=== PATIENT | female | born 1935 | race Caucasian/White ===

== ENCOUNTER → 2019-10-09 10:59 | Outpatient (BNVA) | payer MEDICARE, SELFPAY | PROVIDERS: Family Provider Physician Assistant; PCP Physician Assistant; Referring Provider Family Medicine; Visit Provider Podiatrist Foot & Ankle Surgery | DX: M25.571 Pain in right ankle and joints of right foot (principal) | CPT/HCPCS: 73600; 73630 ==

== ENCOUNTER 2020-08-11 18:09 | Emergency (ER) | payer MEDICARE, SELFPAY ==
[2020-08-11 19:07] VITALS: BP 180/96; PULSE 56; RESP 16; TEMP 36.5; O2SAT 97; BMI 26.5
--- NOTE | 2020-08-11 19:13 | ECG_ITS ---
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 Measurements Intervals [place] Rate: 58 P: MD: QRS: -25 QRSD: 109 T: 41 QT: 430 QTc: 425 Interpretive Statements ATRIAL FIBRILLATION WITH SLOW VENTRICULAR RESPONSE BORDERLINE LEFT AXIS DEVIATION [QRS AXIS < -20] VOLTAGE CRITERIA FOR LVH [MEETS CRITERIA IN ONE OF: R(aVL), S(V1), R(V5), R(V5/V6)+S(V1)] MODERATE ST DEPRESSION [0.05+ mV ST DEPRESSION] Compared to ECG 01/23/2019 10:05:33 Left ventricular hypertrophy now present ST (T wave) deviation now present Intraventricular conduction delay no longer present T-wave abnormality no longer present Electronically Signed On 08-12-2020 0:30:47 CDT by Racquel Morgan M.D. [id number]
--- NOTE | 2020-08-11 20:01 | XRR_ITS ---
PROCEDURE INFORMATION: Exam: XR Chest Exam date and time: 08/11/2020 8:01 PM Age: 84 years old Clinical indication: Shortness of breath; Additional info: Cp TECHNIQUE: Imaging protocol: XR of the chest. Views: 1 view. 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 No airspace opacity. Pulmonary vascularity is within normal limits. Pleural spaces: Unremarkable. No pleural effusion. No pneumothorax. Heart/Mediastinum: The heart is enlarged. Bones/joints: No acute abnormality. XR/XR chest 1V portable [id number] IMPRESSION: Unchanged exam. No active pulmonary disease.
[2020-08-11 20:03] VITALS: BP 188/60; PULSE 53; RESP 16; O2SAT 97
--- NOTE | 2020-08-11 20:07 | ED_ITS ---
HPI - Arrhythmia/Palpitations General: Chief Complaint: Arrhythmia/Palpitations Stated Complaint: Irregular Heartbeat Time Seen by Provider: 08/11/20 19:53 Source: patient Mode of arrival: ambulatory Limitations: no limitations History of Present Illness: HPI narrative: 84-year-old female states that she is like her heart was slightly fluttering and was concerned today as she was having some high blood pressures in the 150s and 160s. Patient was seen at clinic today by nurse practitioner who sent her here as she is in A. fib. She has a long history of A. fib and is on rate controlling medicines and Eliquis. She denies any chest pain currently. Denies any fevers. Denies any shortness of breath. Associated symptoms: Deny nausea or vomiting Review of Systems Const: Denies: fever(s), chills, body aches or change in appetite Eyes: Denies: blurry vision or eye discomfort ENMT: Denies: throat pain or dental pain Card: Reports: irregular heart rhythm; Denies: chest pain Resp: Denies: dyspnea GI: Denies: abdominal pain, nausea, vomiting or diarrhea : Denies: dysuria Musc: Denies: neck pain or back pain Skin/Breast: Denies: rash Neuro: Denies: headache(s) Psych: Denies: depression Guero/Lymph: Denies: easy bruising All/Imm: Denies: urticaria PFSH ED PFSH: Medical History (Updated 08/11/20 @ 20:48 by Henrique Adam MD) Anticoagulant long-term use Eliquis Atrial fibrillation GERD (gastroesophageal reflux disease) HTN (hypertension) Hyperlipidemia Surgical History S/P cataract extraction S/P hysterectomy Family History Father Cancer LEUKEMIA Mother Cancer BREAST Other CAD (coronary artery disease) Diabetes Social History Smoking and tobacco status: never smoked Alcohol intake: never Lives independently: Yes Marital status: / Current occupational status: retired Physical Exam Const: COMMON NORMALS: no acute distress, patient oriented x3 and healthy appearing HENMT: COMMON NORMALS: normocephalic and atraumatic HEAD & SCALP: normocephalic and atraumatic Eye: COMMON NORMALS: Equal, round and reactive pupils present and EOMs intact bilaterally PUPIL: Yes Equal, round and reactive pupils present Neck/C-Spine: COMMON NORMALS: full ROM and supple Chest: COMMONS NORMALS: normal inspection of the chest and normal palpation of entire chest wall Resp: COMMON NORMALS: normal respiratory effort, No retractions, No use of accessory muscles and clear to auscultation bilaterally AUSCULTATION: clear to auscultation bilaterally Cardio: COMMON NORMALS: No murmurs present (Cardio) RATE: bradycardic RHYTHM: abnormal rhythm irregularly irregular GI: COMMON NORMALS: Normal to inspection, nondistended, normoactive bowel sounds present, Soft to palpation, non-tender and no masses PALPATION: Yes Soft to palpation Extremity: COMMON NORMALS: normal to inspection and full ROM Neuro: COMMON NORMALS: patient oriented x3, moves all extremities and no focal motor deficits Psych: COMMON NORMALS: mental status grossly normal, Normal thought process present and cooperative THOUGHT PROCESS: Normal thought process present Skin: COMMON NORMALS: no rashes or lesions noted and no wounds GENERAL SKIN EXAM: no rashes or lesions noted Course Vital Signs: Vital signs: Vital Signs Temperature 97.7 F 08/11/20 19:07 Pulse Rate 53 L 08/11/20 20:03 Respiratory Rate 16 08/11/20 20:03 Blood Pressure 188/60 08/11/20 20:03 Pulse Oximetry 97 08/11/20 20:03 MDM - Arrhythmia/Palpitations MDM Narrative: Medical decision making narrative: Patient presents here with high blood pressure. She was seen in clinic today and sent here for her A. fib but she has a long history of A. fib and is rate controlled and on Eliquis. She feels much improved here and she is stable for discharge. She is to monitor her blood pressure at home. She is return if worsening. Lab Data: Labs: Lab Results 08/11/20 08/11/20 08/11/20 Range/Units 20:05 20:05 20:05 WBC 5.9 (4.0-10.0) 10^3/ uL RBC 3.66 L (4.1-5.3) 10^6/u L Hgb 11.9 (11.5-15.3) g/dL Hct 35.5 L (37.0-47.0) % MCV 97.0 (81-99) fL MCH 32.5 (28.0-34.0) pg MCHC 33.5 (30.0-36.0) g/dL RDW 12.2 (12.1-15.1) % Plt Count 126 L (130-400) 10^3/c mm MPV 10.9 H (7.4-10.4) fL Neut % (Auto) 59.9 % Lymph % (Auto) 25.8 % Ceiba % (Auto) 9.6 % Eos % (Auto) 3.4 % Baso % (Auto) 0.8 % Neut # (Auto) 3.56 (1.8-7.7) 10^3/u L Lymph # (Auto) 1.5 (0.8-4.8) 10^3/u L Ceiba # (Auto) 0.6 (0.2-0.9) 10^3/u L Eos # (Auto) 0.2 (0.0-0.8) 10^3/u L Baso # (Auto) 0.1 (0.0-0.1) 10^3/u L Nucleated RBC % (a uto) 0 % Nucleated RBCs # 0.0 /100WBC Sodium 136 (136-145) mmol/L Potassium 3.3 L (3.5-5.1) mmol/L Chloride 97 L (98-107) mmol/L Carbon Dioxide 29 (22-29) mmol/L Anion Gap 13.3 (5-19) BUN 16 (8-23) mg/dL Creatinine 0.7 (0.5-0.9) mg/dL GFR Calculation Not Reportable Glucose 137 H (65-115) mg/dL Calculated Osmolal ity 285 (285-295) mOsm/k g Calcium 9.2 (8.5-10.5) mg/dL Total Bilirubin 0.9 (0.15-1.2) mg/dL AST 21 (0-32) U/L ALT 12 (0-33) U/L Alkaline Phosphata se 54 (35-105) IU/L Troponin T Baselin e 18 H (0-10) ng/L Total Protein 6.3 L (6.6-8.7) g/dL Albumin 4.3 (3.5-5.2) g/dL Globulin 2.0 (1.3-4.6) g/dL EKG Data^: EKG 1: EKG interpretation date: 08/11/20 EKG interpretation time: 19:05 Interpretation: afib hr [address] or t wave abnormalities qrs 109 qtc 427 Discharge Plan Discharge Patient Disposition: Home Clinical Impression: Atrial fibrillation Qualifiers: Atrial fibrillation type: unspecified Qualified Code(s): I48.91 - Unspecified atrial fibrillation HTN (hypertension) Qualifiers: Hypertension type: essential hypertension Qualified Code(s): I10 - Essential (primary) hypertension Condition: Stable Prescriptions: No Action gabapentin 300 mg capsule 300 mg PO BID RF: 0 metoprolol tartrate 50 mg tablet 50 mg PO BID RF: 0 triamterene-hydrochlorothiazid 37.5-25 mg tablet 1 tab PO DAILY RF: 0 potassium 99 mg tablet 99 mg PO DAILY RF: 0 hydrocortisone [Cortisone (hydrocortisone)] 1 % cream 1 applic TOPICAL BID PRN (Reason: skin irritation) Qty: 454 RF: 1 Eliquis 5 mg tablet 5 mg PO BID Qty: 180 RF: 3 Discharge Orders: Discharge ED (Routine); Ordered 08/11/20 Ordered By: Henrique Adam Referrals: Dennis Wilson [Primary Care Provider] - 1-3 days Discharge Diet: Advance as tolerated Discharge Activity: Resume usual activity Patient Instructions: Hypertension (ED) Coding Level of Care Code ED Director Public Service for Chg Fwd Exam Comprehensive
[2020-08-11] MEDS: hyDRALAzine 20 mg/mL INJ 1 mL 10 MG IVP (20:09)
[2020-08-11 20:17] LABS: Basophils # 0.1 10^3/uL (0.0-0.1); Basophils % 0.8 %; Eosinophils # 0.2 10^3/uL (0.0-0.8); Eosinophils % 3.4 %; Hematocrit 35.5 % (37.0-47.0); Hemoglobin 11.9 g/dL (11.5-15.3); Lymphocytes # 1.5 10^3/uL (0.8-4.8); Lymphocytes % 25.8 %; Mean Corpuscular HGB Conc 33.5 g/dL (30.0-36.0); Mean Corpuscular Hemoglobin 32.5 pg (28.0-34.0); Mean Platelet Volume 10.9 fL (7.4-10.4); Monocytes # 0.6 10^3/uL (0.2-0.9); Monocytes % 9.6 %; Neutrophils # 3.56 10^3/uL (1.8-7.7); Neutrophils % 59.9 %; Nucleated Red Blood Cells % 0 %; Platelet Count 126 10^3/cmm (130-400); Red Blood Count 3.66 10^6/uL (4.1-5.3); Red Cell Distribution Width 12.2 % (12.1-15.1); White Blood Count 5.9 10^3/uL (4.0-10.0)
[2020-08-11 20:31] LABS: Troponin(5th) Baseline 18 ng/L (0-10)
[2020-08-11 20:32] LABS: Alanine Aminotransferase 12 U/L (0-33); Albumin Level 4.3 g/dL (3.5-5.2); Alkaline Phosphatase 54 IU/L (35-105); Aspartate Amino Transferase 21 U/L (0-32); Blood Urea Nitrogen 16 mg/dL (8-23); Calcium 9.2 mg/dL (8.5-10.5); Carbon Dioxide 29 mmol/L (22-29); Chloride 97 mmol/L (98-107); Glucose 137 mg/dL (65-115); Osmolality Calculated 285 mOsm/kg (285-295); Sodium 136 mmol/L (136-145); Total Bilirubin 0.9 mg/dL (0.15-1.2); Total Protein 6.3 g/dL (6.6-8.7)
[2020-08-11 20:33] LABS: Anion Gap 13.3 (5-19); Potassium 3.3 mmol/L (3.5-5.1)
[2020-08-11 21:25] VITALS: BP 153/63; PULSE 60; RESP 18; O2SAT 97
== END 2020-08-11 21:27 | disposition home or self-care (01) ==
PROVIDERS: Emergency Provider Emergency Medicine; PCP Physician Assistant
DX: I10 Essential (primary) hypertension (principal); I48.91 Unspecified atrial fibrillation; Z79.01 Long term (current) use of anticoagulants; E78.5 Hyperlipidemia, unspecified
CPT/HCPCS: 71045; 80053; 84484; 85025; 93005; 96374; 99284; J0360

== ENCOUNTER 2020-09-18 12:53 | Emergency (ER) | payer MEDICARE, SELFPAY ==
[2020-09-18 13:21] VITALS: BP 160/69; PULSE 79; RESP 18; TEMP 37.1; O2SAT 96; BMI 25.7
--- NOTE | 2020-09-18 13:53 | ED_ITS ---
HPI - COVID General: Chief Complaint: COVID symptoms Stated Complaint: HOME TEST/COVID +:FATIGUE,ACHES, JOINT PAIN Time Seen by Provider: 09/18/20 13:48 Source: patient Mode of arrival: ambulatory Limitations: no limitations Triage information: Has fever, cough or shortness of breath . Exposure to COVID + person last 14 days History of Present Illness: HPI Narrative: Reportedly took home Covid test which returned negative last night. Woke this morning with a fever of 100 ?F. Reports no cough shortness of breath aside from fever feels fine. MD complaint: reported COVID exposure and has COVID symptoms Prior covid testing: yes, results known (Negative rapid testing) Prior testing date: 09/17/20 COVID 19 common symptoms: positive fever(s), chills, fatigue, body aches and headache(s); negative cough, non-productive cough, productive cough, dyspnea, loss of sense of smell and/or taste, throat pain, nasal congestion, nausea, vomiting, diarrhea or chest tightness COVID 19 other sytmptoms: negative chest pressure, chest pain, pleuritic pain, requiring oxygen, requiring more oxygen, respiratory distress, cyanosis, lethar gy, confusion, new neurological complaints or other concerning symptoms Onset (ago): day(s) (1) Severity: mild Pertinent comorbid conditions: hypertension and heart disease Treatment prior to arrival: none COVID Results: No Data to Display Review of Systems General: Reports: 10 or more systems reviewed and unremarkable except in HPI and below Const: Reports: fever(s), chills, body aches and fatigue ENMT: Denies: throat pain or nasal congestion Card: Denies: chest pain Resp: Denies: dyspnea, productive cough or non-productive cough GI: Denies: nausea, vomiting or diarrhea Neuro: Reports: headache(s); Denies: confusion PFSH ED PFSH: Medical History (Updated 08/11/20 @ 20:48 by Henrique Adam MD) Anticoagulant long-term use Eliquis Atrial fibrillation GERD (gastroesophageal reflux disease) HTN (hypertension) Hyperlipidemia Surgical History S/P cataract extraction S/P hysterectomy Family History Father Cancer LEUKEMIA Mother Cancer BREAST Other CAD (coronary artery disease) Diabetes Social History Smoking and tobacco status: never smoked Alcohol intake: never Lives independently: Yes Marital status: / Current occupational status: retired Physical Exam Const: COMMON NORMALS: no acute distress GENERAL APPEARANCE: cooperative, comfortable and well kempt HENMT: COMMON NORMALS: normocephalic and atraumatic HEAD & SCALP: normal to inspection, normocephalic and atraumatic Eye: COMMON NORMALS: Equal, round and reactive pupils present GENERAL EYE: appearance normal, both eyes and all related structures PUPIL: Yes Equal, round and reactive pupils present Neck/C-Spine: COMMON NORMALS: full ROM, no lymphadenopathy and no JVD Lymph: LYMPHATIC: no lymphadenopathy noted Resp: COMMON NORMALS: normal respiratory effort, No retractions, No use of accessory muscles and clear to auscultation bilaterally EFFORT & INSPECTION: Yes able to speak in complete sentences, Yes symmetric chest movement, No tachypneic, No respiratory distress and No labored AUSCULTATION: clear to auscultation bilaterally Cardio: COMMON NORMALS: no JVD, regular rate, S1 normal heart sound present and S2 normal heart sound present RATE: regular rate HEART SOUNDS: S1 normal heart sound present and S2 normal heart sound present GI: COMMON NORMALS: Normal to inspection, nondistended, normoactive bowel so unds present Extremity: GENERAL: Yes normal exam except as noted Psych: APPEARANCE: Yes well kempt Skin: COMMON NORMALS: no rashes or lesions noted GENERAL SKIN EXAM: no rashes or lesions noted Course ED course: Presents to emergency room requesting Covid testing awoke this mor uriah febrile with a headache. Has since developed some body aches but no further progression of symptoms. Brought here for evaluation by son overall patient states she feels fine. Discussed monoclonal antibody infusion patient desires infusion. Vital Signs: Vital signs: Vital Signs Temperature 98.8 F 09/18/20 13:21 Pulse Rate 79 09/18/20 13:21 Respiratory Rate 18 09/18/20 13:21 Blood Pressure 160/69 09/18/20 13:21 Pulse Oximetry 96 09/18/20 13:21 MDM - COVID MDM Narrative: Medical decision making narrative: Due to the long wait patient desires to be discharged home and contacted with Covid results we will schedule for monoclonal antibody infusion pending results. COVID Results: No Data to Display Monoclonal Antibody - ED Inclusion/Exclusion Criteria age >/= 12 years, weight >/= 40kg /88lbs, symptom onset less than 10 days ago and + direct Sars-Cov-2 test less than 7-10 days ago obesity (BMI >25 or 85%til for age), immunosuppressive diease and age >/= 65 not requiring hospitalization, not requiring oxygen (if not chronically on ox ygen) and no increase oxygen requirement (if chronically on oxygen) Patient education patient/family/caregiver received/reviewed fact sheet, Emergency Use Authorization/unapproved drug status discussed with patient/family/caregiver, alternatives to this treatment discussed with patient/family/caregiver, risks and benefits of medication reviewed with patient/family/caregiver, patient/family/caregiver given opportunity for questions, which were answered and patient consents to receiving Monoclonal Antibody Treatment Plan for treatment Meets criteria for Monoclonal Antibody infusion and If had positive direct antigen test for COVID, would meet criteria for Monoclonal Antibody infusion Date of symptom(s) onset: 09/18/20 Ordering Monoclonal Antibody infusion for another day Discharge Plan Discharge Condition: Stable Prescriptions: No Action gabapentin 300 mg capsule 300 mg PO BID RF: 0 metoprolol tartrate 50 mg tablet 50 mg PO BID RF: 0 triamterene-hydrochlorothiazid 37.5-25 mg tablet 1 tab PO DAILY RF: 0 potassium 99 mg tablet 99 mg PO DAILY RF: 0 hydrocortisone [Cortisone (hydrocortisone)] 1 % cream 1 applic TOPICAL BID PRN (Reason: skin irritation) Qty: 454 RF: 1 Eliquis 5 mg tablet 5 mg PO BID Qty: 180 RF: 3 Discharge Orders: Discharge ED (Routine); Ordered 09/18/20 Ordered By: Didi York Referrals: Renee Ferguson NP [Primary Care Provider] - Coding Level of Care Code ED Technical Applications Specialist for Chg Fwd Exam Comprehensive
--- NOTE | 2020-09-18 15:33 | PC.NURSE ---
pt was seen and discharged by midlevel provider in waiting room. no nursing assessment done.
[2020-09-18 16:12] LABS: SARS Covid-2 Antigen Positive (Negative)
--- NOTE | 2020-09-18 17:18 | PC.NURSE ---
called pt and notified of positive covid results. pt will be contacted this weekend to set up MCA infusion
--- NOTE | 2020-09-21 08:30 | DCPLANNER ---
assistant manager quality management had message to schedule a monoclonal antibody infusion. assistant manager quality management called centralized scheduling to confirm that scheduling had order on patient. assistant manager quality management was told that scheduling had the order and will schedule the infusion and will call patient with the appointment information.
== END 2020-09-18 15:35 | disposition home or self-care (01) ==
PROVIDERS: Emergency Provider Nurse Practitioner Family; PCP Nurse Practitioner Family
DX: U07.1 COVID-19 (principal); Z79.01 Long term (current) use of anticoagulants; I10 Essential (primary) hypertension; E78.5 Hyperlipidemia, unspecified
CPT/HCPCS: 87426; 99282

== ENCOUNTER 2020-09-20 09:11 | Outpatient (CLI) | payer MEDICARE, SELFPAY ==
[2020-09-20 12:00] VITALS: BP 125/69; PULSE 69; RESP 18; TEMP 36.6; O2SAT 96; BMI 30.2
[2020-09-20 12:25] VITALS: BP 138/72; PULSE 58; RESP 17; TEMP 36.5; O2SAT 95
--- NOTE | 2020-09-20 13:10 | A.OFFVIS_ITS ---
Patient Information Symptom onset date: 09/17/20 COVID 19 common symptoms: positive fever(s), chills, fatigue and body aches; negative cough Severity: mild Treatment prior to arrival: none [facility] COVID test results: SARS-CoV-2 Antigen (Rapid) Positive (Negative) H 09/18/20 15:30 09/18/20 Criteria/Plan Inclusion/Exclusion Criteria age >/= 12 years, weight >/= 40kg /88lbs, symptom onset less than 10 days ago and + direct Sars-Cov-2 test less than 7-10 days ago age >/= 65 not requiring hospitalization, not requiring oxygen (if not chronically on oxygen) and no increase oxygen requirement (if chronically on oxygen) Patient education patient/caregiver received/reviewed fact sheet, Emergency Use Authoriz ation/unapproved drug status discussed with patient/caregiver, alternatives to this treatment discussed with patient/caregiver, risks and benefits of medication reviewed with patient/caregiver, patient/caregiver given opportunity for questions, which were answered and patient/caregiver consents to receiving Monoclonal Antibody Treatment Plan for treatment Meets criteria for Monoclonal Antibody infusion Ordering Monoclonal Antibody infusion for today
[2020-09-20 14:25] VITALS: BP 135/77; PULSE 55; RESP 18; TEMP 36.2; O2SAT 98
== END 2020-09-20 09:12 | disposition home or self-care (01) ==
PROVIDERS: PCP Nurse Practitioner Family; Visit Provider Hospitalist
DX: U07.1 COVID-19 (principal)
CPT/HCPCS: 96365

== ENCOUNTER 2020-12-08 14:57 | Observation (INO) | payer MEDICARE, SELFPAY ==
[2020-12-08] VITALS (9 sets, daily range): BP systolic 125–181; BP diastolic 53–86; PULSE 53–80; RESP 13–19; TEMP 36.6–36.9; O2SAT 96–100
--- NOTE | 2020-12-08 15:20 | XR_ITS ---
WS: [id number] Exam: XR chest 1V portable [id number] Date/Time of Exam: 12/08/2020 3:22 PM Reason For Exam: chest pain Comparison 08/11/2020. The lungs are clear and fully expanded. The heart is enlarged but unchanged in size. No pleural effus ions. The mediastinum is not widened. Marked degenerative change of the right and left shoulders. XR/XR chest 1V portable [id number] IMPRESSION: 1. Cardiac enlargement unchanged. 2. No acute cardiopulmonary process identified.
--- NOTE | 2020-12-08 15:21 | ECG_ITS ---
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 Measurements Intervals [place] Rate: 62 P: MO: QRS: -20 QRSD: 101 T: 47 QT: 417 QTc: 424 Interpretive Statements ATRIAL FIBRILLATION MODERATE VOLTAGE CRITERIA FOR LVH, CONSIDER NORMAL VARIANT [MEETS CRITERIA IN ONE OF: R(aVL), S(V1), R(V5), R(V5/V6)+S(V1)] MODERATE ST DEPRESSION [0.05+ mV ST DEPRESSION] Compared to ECG 08/11/2020 19:05:38 No significant changes Electronically Signed On 12-08-2020 23:24:04 CDT by Evaristo Turcios M.D. [id number]
--- NOTE | 2020-12-08 15:34 | ED_ITS ---
HPI - General Adult General: Chief complaint: Chest Pain Stated complaint: CHEST PAIN Time Seen by Provider: 12/08/20 15:05 History of Present Illness: HPI narrative: CC: Chest Pain HPI: This is a [85]yo patient hx of HTN, afib on eliquis presenting to the ED w/ acute onset intermittent squeenzing chest pain since 11am. Denies any dyspnea. Patient called EMS and was given ASA 325 and 2 tablets with nitro with relief of pain. Pain is not tearing in nature and does not radiate to the back. Endorse nausea but has no associated with vomiting or decreased PO intake. Denies any recent sympathomimetic drug use. Patient denies any cough. Denies palpitations, syncope symptoms. Pain not positional. Norecent immobility, surgery, unilateral leg swelling, or prior PE. Patient denies any orthopnea, paroxysmal nocturnal dyspnea, weight gain, or increased leg swellings. Onset: 4 hrs ago Duration: ongoing for the last 4 hrs Location: home Severity: moderate Review of Systems Narrative: Constitutional: No fever, no chills. HEENT: No vision changes, no sore throat. CV: +chest pain, no palpitations. PULM: No cough, no dyspnea. GI: No abdominal pain, no N/V/D. : No dysuria, no frequency, no hematuria. MSKEL: No arthralgias, no edema. SKIN: No new rashes, no lesions. NEURO: No headache, no focal weakness. HEME: No easy bleeding or bruising. PSYCH: No change in mood or affect. [facility] ED PFSH: Medical History (Updated 12/10/20 @ 00:01 by ) Anticoagulant long-term use Eliquis Atrial fibrillation COVID-19 GERD (gastroesophageal reflux disease) HTN (hypertension) Hyperlipidemia Surgical History S/P cataract extraction S/P hysterectomy Family History Father Cancer LEUKEMIA Mother Cancer BREAST Other CAD (coronary artery disease) Diabetes Social History Smoking and tobacco status: never smoked Alcohol intake: never Lives independently: Yes Marital status: / Current occupational status: retired Physical Exam Narrative: EXAM NARRATIVE: Head: Atraumatic, normocephalic Eyes: PERRL, EOMI, conjunctiva without injection ENT: Throat without erythema, lesions or exudate, MMM NECK: Supple, trachea midline, no JVD LUNGS: LCTA CV: Irregularly irregular, no murmurs, rubs, gallops. 2+ peripheral pulses in UEs ABDOMEN: Soft, nontender, nondistended, BS x4, no rigidity, no guarding, no rebound EXTREMITY: Normal ROM, no pitting edema, no calf tenderness to palpation SKIN: No rash or erythema NEURO: Awake and alert. No focal motor deficits. PSYCH: Normal mood and affect. Course Vital Signs: Vital signs: Vital Signs Temperature 98 F 12/09/20 03:38 Pulse Rate 56 L 12/09/20 16:46 Respiratory Rate 20 H 12/09/20 16:46 Blood Pressure 139/69 12/09/20 16:46 Pulse Oximetry 95 12/09/20 16:46 MDM - General Adult MDM Narrative: Medical decision making narrative: [85]yo patient w/ hx of afib on eliquis, HTN, HLD presenting to the ED With acute substernal chest pain X 4 hrs. Currently mild chest pain, no prior workup. Given History And Exam today I have moderate to high suspicion for ACS/UA/NSTEMI. Today, I have NO suspicion for pneumothorax, pneumonia, pulmonary embolus, tamponade, aortic dissection or other emergent problem as a cause for this presentation. ECG did not show any signs of acute STEMI. Workup: ECG, CXR, CBC, BMP, Troponin Intervention: Nitro SL EKG showing Afib at HR=62. Normal axis. No ST elevations/depressions to suggest coronary occlusion. Normal QRS, QT intervals. Poor R wave progression Findings: ECG: No overt evidence of STEMI, no hyperacute T waves, localizable STD or T wave inversions. No evidence of Brugada?s sign, delta wave, epsilon wave, significantly prolonged QTc, or malignant arrhythmia. No Q waves. Troponin: 21 (baseline 18) Other Labs unremarkable for emergent problems. CXR: Without PTX, PNA, or widened mediastinum [4:41pm] On reassessment, the patient is currently chest pain free. Will admit for chest pain workup. Disposition: Inpatient admission. Lab Data: Labs: Lab Results 12/08/20 12/08/20 12/08/20 15:45 15:45 15:45 WBC 5.3 10^3/uL 10^3/ uL (4.0-10.0) RBC 3.28 10^6/uL L 10 ^6/uL (4.1-5.3) Hgb 10.8 g/dL L g/dL (11.5-15.3) Hct 31.2 % L % (37.0-47.0) MCV 95.1 fl fl (81-99) MCH 32.9 pg pg (28.0-34.0) MCHC 34.6 g/dL g/dL (30.0-36.0) RDW 12.3 % % (12.1-15.1) Plt Count 111 10^3/cmm L 10 ^3/cmm (130-400) MPV 11.0 fL H fL (7.4-10.4) Neut % (Auto) 69.4 % % Lymph % (Auto) 19.7 % % Porter % (Auto) 8.0 % % Eos % (Auto) 1.9 % % Baso % (Auto) 0.6 % % Neut # (Auto) 3.66 10^3/uL 10^3 /uL (1.8-7.7) Lymph # (Auto) 1.0 10^3/uL 10^3/ uL (0.8-4.8) Porter # (Auto) 0.4 10^3/uL 10^3/ uL (0.2-0.9) Eos # (Auto) 0.1 10^3/uL 10^3/ uL (0.0-0.8) Baso # (Auto) 0.0 10^3/uL 10^3/ uL (0.0-0.1) Nucleated RBC % (a uto) 0 % % Nucleated RBCs # 0.0 /100WBC /100W BC D-Dimer Sodium 137 mmol/L mmol/L (136-145) Potassium 3.4 mmol/L L mmol /L (3.5-5.1) Chloride 98 mmol/L mmol/L (98-107) Carbon Dioxide 30 mmol/L H mmol/ L (22-29) Anion Gap 12.4 (5-19) BUN 15 mg/dL mg/dL (8-23) Creatinine 0.8 mg/dL mg/dL (0.5-0.9) GFR Calculation Not Reportable Glucose 110 mg/dL mg/dL (65-115) Calculated Osmolal ity 285 mOsm/kg mOsm/ kg (285-295) Calcium 9.4 mg/dL mg/dL (8.5-10.5) Iron TIBC % Saturation Unsat Iron Binding Troponin T Baselin e 21 ng/L H ng/L (0-10) NT-Pro-B Natriuret Pep Procalcitonin TSH 12/08/20 12/08/20 12/08/20 15:45 15:45 15:45 WBC RBC Hgb Hct MCV MCH MCHC RDW Plt Count MPV Neut % (Auto) Lymph % (Auto) Porter % (Auto) Eos % (Auto) Baso % (Auto) Neut # (Auto) Lymph # (Auto) Porter # (Auto) Eos # (Auto) Baso # (Auto) Nucleated RBC % (a uto) Nucleated RBCs # D-Dimer 0.79 ug/mIFEU H u g/mIFEU (0-0.59) Sodium Potassium Chloride Carbon Dioxide Anion Gap BUN Creatinine GFR Calculation Glucose Calculated Osmolal ity Calcium Iron 92 ug/dL ug/dL (37-145) TIBC 257 mcg/dl mcg/dl % Saturation 35.7 % % (20-50) Unsat Iron Binding 165 ug/dL ug/dL (112-347) Troponin T Baselin e NT-Pro-B Natriuret Pep 1770 pg/mL H pg/m L (0-450) Procalcitonin 0.05 ng/mL ng/mL (0-0.5) TSH 1.72 uIU/mL uIU/m L (0.27-4.20) Imaging Data^: Other Imaging: Radiologist's impression: [address] [id number] ReportSigned Patient: Adele Garland #: [id number]: 8Acct#:[id number]/Sex: 85 / FADM Date: 12/08/20Loc: ERRoom/Bed:Attending Dr: Ordering Provider/Ordering MD: Daxa Connors MD Date of Service: 12/08/20 Procedure(s): XR chest 1V portable [id number] Accession Number(s): [id number] Report Number: [id number] WS: [id number] Exam: XR chest 1V portable [id number] Date/Time of Exam: 12/08/2020 3:22 PM Reason For Exam: chest pain Comparison 08/11/2020. The lungs are clear and fully expanded. The heart is enlarged but unchanged in size. No pleural effusions. The mediastinum is not widened. Marked degenerative change of the right and left shoulders. XR/XR chest 1V portable [id number] IMPRESSION: 1. Cardiac enlargement unchanged. 2. No acute cardiopulmonary process identified. Dictated By:Johana Butler By:Johana Butler Date/Time:12/08/20 1532DD/ 1530 Discharge Plan Discharge Patient Disposition: Admitted As Inpatient Admit Provider: Ino Carballo Clinical Impression: Chest pain Condition: Stable Discharge Diet: Cardiac Discharge Activity: Resume usual activity Coding Level of Care Code ED Paper Stacker for Zeeg Olivia
--- NOTE | 2020-12-08 16:00 | PC.PHAR ---
pt states she takes care of her own medications-pt brought in most of her medication bottles
[2020-12-08 16:05] LABS: Basophils % 0.6 %; Eosinophils # 0.1 10^3/uL (0.0-0.8); Eosinophils % 1.9 %; Hematocrit 31.2 % (37.0-47.0); Hemoglobin 10.8 g/dL (11.5-15.3); Lymphocytes % 19.7 %; Mean Corpuscular HGB Conc 34.6 g/dL (30.0-36.0); Mean Corpuscular Hemoglobin 32.9 pg (28.0-34.0); Mean Corpuscular Volume 95.1 fl (81-99); Monocytes # 0.4 10^3/uL (0.2-0.9); Neutrophils # 3.66 10^3/uL (1.8-7.7); Neutrophils % 69.4 %; Nucleated Red Blood Cells % 0 %; Platelet Count 111 10^3/cmm (130-400); Red Blood Count 3.28 10^6/uL (4.1-5.3); Red Cell Distribution Width 12.3 % (12.1-15.1); White Blood Count 5.3 10^3/uL (4.0-10.0)
[2020-12-08 16:29] LABS: Troponin(5th) Baseline 21 ng/L (0-10)
[2020-12-08 16:31] LABS: Anion Gap 12.4 (5-19); Blood Urea Nitrogen 15 mg/dL (8-23); Calcium 9.4 mg/dL (8.5-10.5); Carbon Dioxide 30 mmol/L (22-29); Chloride 98 mmol/L (98-107); Glucose 110 mg/dL (65-115); Osmolality Calculated 285 mOsm/kg (285-295); Potassium 3.4 mmol/L (3.5-5.1); Sodium 137 mmol/L (136-145)
[2020-12-08 16:56] LABS: Slide Review Slide Review Perform
[2020-12-08] MEDS: nitroglycerin 0.4 mg sublingual Tablet SUBLINGUAL (16:57)
--- NOTE | 2020-12-08 17:21 | ECG_ITS ---
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 Measurements Intervals [place] Rate: 65 P: [place]: QRS: -22 QRSD: 97 T: 25 QT: 425 QTc: 444 Interpretive Statements ATRIAL FIBRILLATION BORDERLINE LEFT AXIS DEVIATION [QRS AXIS < -20] MODERATE VOLTAGE CRITERIA FOR LVH, CONSIDER NORMAL VARIANT [MEETS CRITERIA IN ONE OF: R(aVL), S(V1), R(V5), R(V5/V6)+S(V1)] ABNORMAL RHYTHM ECG Compared to ECG 12/08/2020 15:37:24 ST (T wave) deviation no longer present Electronically Signed On 12-08-2020 23:29:35 CDT by Evaristo Turcios M.D. [id number]
--- NOTE | 2020-12-08 17:28 | CTR_ITS ---
PROCEDURE INFORMATION: Exam: CTA Chest With Contrast Exam date and time: 12/08/2020 5:28 PM Age: 85 years old Clinical indication: Sternal or substernal pain; Additional info: Chest pain, recent covid, possible pe TECHNIQUE: Imaging protocol: Computed tomographic angiography of the chest with contrast. 3D rendering (Not supervised by radiologist): MIP and/or 3D reconstructed images were created by the technologist. Radiation optimization: All CT scans at this facility use at least one of these dose optimization techniques: automated exposure control; mA and/or kV adjustment per patient size (includes targeted exams where dose is matched to clinical indication); or iterative reconstruction. Contrast material: OMNI 350; Contrast volume: 77 ml; Contrast route: INTRAVENOUS (IV); COMPARISON: CR XR chest 1V portable [id number] 12/08/2020 3:26 PM RADIATION DOSE METRICS: Total DLP (mGy-cm): 525.49 FINDINGS: Pulmonary arteries: There is no evidence of filling defects within the pulmonary arterial circulation to suggest pulmonary embolism. Aorta: Unremarkable. No aortic aneurysm. No aortic dissection. Lungs: There is minimal dependent atelectasis at the lung bases. There are 2 noncalcified nodules in the anterior right upper lobe on image number 28 of series 3 measuring 1.9 and 3.6 mm. For patients at low risk (minimal or absent history of smoking and of other known risk factors), no routine follow-up is indicated. For patients at high risk (history of smoking or of other known risk factors), consider optional CT Chest at 12 months. (Reference: AlvinoWa) there is calcified granuloma left lower lobe. Pleural spaces: There is tiny right pleural effusion. Heart: The heart is moderately enlarged. There is moderate atherosclerotic calcification of the coronary arteries. There is a tiny bit of fluid in the superior pericardial recess. Lymph nodes: There is no evidence of lymphadenopathy. There are calcified hilar lymph nodes in keeping with old granulomatous disease. Liver: 13 mm hypodensity right lobe of the liver likely benign simple cyst. Gallbladder and bile ducts: Multiple calcified gallstones are present. Spleen: The spleen demonstrates punctate calcifications, consistent with remote granulomatous organism exposure. Adrenal glands: There is mild hyperplasia of the adrenal glands. Bones/joints: There are degenerative changes in both shoulders. There is mild scoliosis concave to the left. Soft tissues: Unremarkable. CT/CT angio chest PE protcl [id number] IMPRESSION: No evidence of pulmonary embolism. REFERENCES: Abril Macias, et al. Guidelines for Management of Incidental Pulmonary Nodules Detected on CT Images: From the Fleischner Society 2017. Radiology. 2017;284(1):228-243. Radiation Dose CTDIVOL = (mGy): DLP = 525.49 (mGy-cm)
--- NOTE | 2020-12-08 17:44 | P.HP_ITS ---
Providers/Chief Complaint Primary Care Provider: Renee Ferguson NP Chief Complaint: CHEST PAIN History of Present Illness Adele Garland is a 85 year old female with past medical history of atrial fibrillation on anticoagulation with Eliquis, hypertension, hyperlipidemia presented to the ER today after developing chest pain at rest today morning for which she required 1 nitro patch in the ER and after that pain resolved. Patient states usually she does not have chest pain on exertion. Pain was stabbing in nature not nonradiating not reproducible. Denies any nausea vomiting, headache. Patient also has recent history of COVID-19 2 months ago for which she required monoclonal antibodies. She is a non-smoker with family history of CAD in sister and mother both after the age of 60 years. Any recent change in medications, acid reflux, difficulty in breathing, cough. Blood work in the ER showed a white of 5.3, hemoglobin of 10.8, sodium of 137, potassium of 3.4, creatinine of 0.8, with chest x-ray as below, baseline tropon in of 21 without any delta being checked. Review of Systems General: Reports: 10 or more systems reviewed and unremarkable except in HPI and below Const: Denies: fever(s), chills, body aches, change in appetite, change in weight, malaise, night sweats, diaphoresis, change in sleep pattern, daytime sleepiness or snoring Eyes: Denies: change in vision, blurry vision, photophobia, eye discomfort or eye discharge ENMT: Denies: throat pain, enlarged tonsils, hoarseness, mouth pain, oral sores, dry mouth, tinnitus, nasal congestion or post nasal drip Card: Denies: chest pain, palpitations, irregular heart rhythm, edema, swelling of feet/ankles, lightheadedness, syncope, pre-syncope, dyspnea on exertion, orthopnea, leg pain with exertion or acrocyanosis Resp: Denies: dyspnea, productive cough, non-productive cough, wheezing, stridor, pain on inspiration, change in phlegm color, hemoptysis or chest congestion GI: Denies: abdominal pain, nausea, vomiting, hematemesis, coffee ground emesis, dysphagia, heartburn, diarrhea, constipation, bloating, GI cramping, c hange in bowel habits, pain on defecation, hematochezia or melena : Denies: flank pain, dysuria, urinary frequency, urinary urgency, urinary hesitancy, nocturia or hematuria Musc: Denies: neck pain, back pain, extremity pain, joint pain, joint swelling, joint redness, joint stiffness or limited range of motion Neuro: Denies: headache(s), numbness in extremities, weakness in extremities, sensory changes, lack of coordination, difficulty walking, frequent falls, dizziness, vertigo, confusion, Slurred speech present, difficulty communicating thoughts or seizure-like activity Psych: Denies: anxiety, depression, mood swings, panic attacks, hopelessness or irritability Endo: Denies: polyuria, polydipsia, tired all the time, cold intolerance, excessive sweating, flushing or heat intolerance Guero/Lymph: Denies: easy bruising or easy bleeding All/Imm: Denies: tongue swelling, facial swelling or acute wheezing Medications/Allergies Home Medications Medication Instructions Recorded Confirmed Last Taken Type gabapentin 300 mg capsule 300 mg PO TID 06/24/19 12/08/20 12/08/20 08:30 History metoprolol tartrate 50 mg tablet 50 mg PO BID 06/24/19 12/08/20 12/08/20 08:30 History apixaban 5 mg tablet 5 mg PO BID #180 tab 01/22/20 12/08/20 12/08/20 08:30 Rx acetaminophen [Tylenol Ex Str 1,000 mg PO Q4H PRN 12/08/20 12/08/20 Unknown Hist ory Rapid Release] ibuprofen 400 mg PO DAILY 12/08/20 12/08/20 Unknown History multivitamin 1 tab PO DAILY 12/08/20 12/08/20 Unknown History omeprazole [Prilosec] 20 mg PO QAM 12/08/20 12/08/20 Unknown History potassium gluconate 595 mg PO QAM 12/08/20 12/08/20 12/07/20 History pravastatin 10 mg PO QAM 12/08/20 12/08/20 12/08/20 08:30 History triamterene-hydrochlorothiazid 1 tab PO QAM 12/08/20 12/08/20 12/08/20 08:30 History Allergies Allergy/AdvReac Type Severity Reaction Status Date / Time codeine Allergy Unknown Unknown Verified 12/08/20 15:59 morphine Allergy Unknown Unknown Verified 12/08/20 15:59 nifedipine [From Procardia] Allergy Unknown Unknown Verified 12/08/20 15:59 Penicillins Allergy Unknown Unknown Verified 12/08/20 15:59 cortisone Allergy Unknown Verified 12/08/20 15:59 PFSH Acute PFSH: Medical History (Updated 12/08/20 @ 17:52 by Ino Carballo MD) Anticoagulant long-term use Eliquis Atrial fibrillation COVID-19 GERD (gastroesophageal reflux disease) HTN (hypertension) Hyperlipidemia Surgical History S/P cataract extraction S/P hysterectomy Family History Father Cancer LEUKEMIA Mother Cancer BREAST Other CAD (coronary artery disease) Diabetes Social History Smoking and tobacco status: never smoked Alcohol intake: never Lives independently: Yes Marital status: / Current occupational status: retired Vitals/I&O/Wt Last Vital Signs Temp 98.5 F 12/08/20 15:50 Pulse 63 12/08/20 16:55 Resp 19 H 12/08/20 16:55 BP 149/86 12/08/20 16:55 Pulse Ox 97 12/08/20 16:55 Physical Exam Narrative: EXAM NARRATIVE: General: No acute distress, AO x3 HEENT: PERRLA, pupils bilaterally equal and reactive Chest: Normal vesicular breath sounds, no added sounds, equal good air entry bilaterally CVS: S1-S2 irregularly irregular no murmurs, no tachycardia, no gallops, no rubs Abdomen: Soft, nontender, no organomegaly, bowel sounds present Neuro: No focal deficits, no facial deformity, AO x3, power 5/5 in all limbs Data : 12/08/20 15:45 12/08/20 15:45 A&P Assessment and plan (1) Chest pain: Atypical chest pain. Most likely musculoskeletal but given history cannot rule out unstable angina or PE Given history of recent Covid cannot rule out PE. Check D-dimer, CTA to rule out PE. Aspirin 325 mg given in the ER, 81 mg daily, continue with home dose of statin. Check HbA1c, lipid panel, echocardiogram. Nitro sublingual for pain, morphine as needed. Oxygen supplementation to keep saturation over 90%. N.p.o. after midnight for Lexiscan tomorrow morning. Protonix daily, Zofran as needed, Maalox every 6 hours as needed Status: Acute (2) Atrial fibrillation: Rate controlled. Continue with home dose of metoprolol and Eliquis. Status: Acute Qualifiers: Atrial fibrillation type: unspecified Qualified Code(s): I48.91 - Unspecified atrial fibrillation (3) Hyperlipidemia: Status: Acute (4) HTN (hypertension): Goal blood pressure less than 140/90 mmHg. Continue with home dose of metoprolol, triamterene hydrochlorothiazide. Blood pressure mildly elevated in the ER. We will continue to monitor. If needed will uptitrate medications. Status: Acute Qualifiers: Hypertension type: essential hypertension Qualified Code(s): I10 - Essential (primary) hypertension (5) COVID-19: Positive in September 2020. Post monoclonal antibody infusion. On room air. Status: Resolved Additional A&P Information Full code. Cardiac diet, n.p.o. after midnight. Protonix for PUD prophylaxis. Eliquis will help with DVT prophylaxis. Attestations Medical Necessity Statement*: Less than 2 midnights for atypical chest pain to rule out CAD in setting of recent Covid and atrial fibrillation Time Spent in Patient Care: Greater than 35 minutes (>than 50% of time spent in counselling and/or direct pt care on unit) . 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
[2020-12-08] MEDS: iohexol 350 mg/mL 100 mL Btl IV (17:47)
[2020-12-08 17:49] LABS: D Dimer 0.79 ug/mIFEU (0-0.59)
[2020-12-08] MEDS: pantoprazole DR 40 mg Tablet PO (18:03)
[2020-12-08 18:05] LABS: Thyroid Stimulating Hormone 1.72 uIU/mL (0.27-4.20)
[2020-12-08 18:06] LABS: Iron 92 ug/dL (37-145); NT Pro B Type Natriuretic Pept 1770 pg/mL (0-450); Percent Saturation 35.7 % (20-50); Total Iron Binding Capacity 257 mcg/dl; Unsaturated Iron Binding 165 ug/dL (112-347)
[2020-12-08 18:31] LABS: Troponin 5 2HR 18.98 ng/L (0-10)
[2020-12-08 18:36] LABS: Troponin 5 2HR Delta -2.02 ABS# (0-10)
[2020-12-08 18:46] LABS: Procalcitonin 0.05 ng/mL (0-0.5)
--- NOTE | 2020-12-08 21:21 | ECG_ITS ---
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 Measurements Intervals [place] Rate: 56 P: [place]: QRS: -5 QRSD: 101 T: 5 QT: 427 QTc: 414 Interpretive Statements ATRIAL FIBRILLATION WITH SLOW VENTRICULAR RESPONSE SEPTAL MYOCARDIAL INFARCTION , PROBABLY OLD [40+ ms Q WAVE IN V1/V2] Compared to ECG 12/08/2020 17:02:40 Myocardial infarct finding now present Electronically Signed On 12-08-2020 23:28:12 CDT by Evaristo Turcios M.D. [id number]
[2020-12-08] MEDS: gabapentin 300 mg Capsule PO (22:19)
[2020-12-08] MEDS: ferrous gluconate 324 mg Tablet PO (22:19)
[2020-12-08] MEDS: apixaban 5 mg Tablet PO (22:19)
[2020-12-08] MEDS: atorvastatin 40 mg Tablet 20 MG PO (22:19)
[2020-12-08] MEDS: metoprolol tartrate 50 mg Tablet PO (22:19)
[2020-12-08 22:35] LABS: Troponin 5 6HR 20.92 ng/L (0-10)
[2020-12-08 22:43] LABS: Troponin 5 6HR Delta -0.08 ng/L (0-12)
[2020-12-08] MEDS: alum-mag-hydroxide-sime 30 mL UDC 15 ML PO (22:58)
--- NOTE | 2020-12-08 23:16 | PC.NURSE ---
Patient c/o chest heaviness 1/10 upon arrival to floor. Around 2300, patient stated it was getting worse and rated it at a 3/10. Patient stated that nitro relieved her pain in the ED. Patient given PRN Maalox. Patient states that her pain is now gone.
--- NOTE | 2020-12-09 00:31 | ECG_ITS ---
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 Measurements Intervals [place] Rate: 47 P: [place]: QRS: -9 QRSD: 99 T: 0 QT: 450 QTc: 400 Interpretive Statements ATRIAL FIBRILLATION WITH SLOW VENTRICULAR RESPONSE INCOMPLETE RIGHT BUNDLE BRANCH BLOCK [90+ ms QRS DURATION, TERMINAL R IN V1/V2, 40+ ms S IN I/aVL/V4/V5/V6] SEPTAL MYOCARDIAL INFARCTION , PROBABLY OLD [40+ ms Q WAVE IN V1/V2] Compared to ECG 12/08/2020 22:16:40 Incomplete right bundle-branch block now present Myocardial infarct finding still present Electronically Signed On 12-10-2020 1:26:54 CDT by Racquel Morgan M.D. [email or web address] [email or web address].[employer]/[id number]
--- NOTE | 2020-12-09 01:36 | PC.NURSE ---
Dr. Jenkins notified of heart rate maintaining 40s-50s and hitting the 30s at times. Patient is asymptomatic. Blood pressure stable. Ordered to put Metoprolol on hold. Also notified of recent EKG results. Patient is currently not having any pain.
[2020-12-09 03:38] VITALS: BP 139/67; PULSE 68; RESP 16; TEMP 36.6; O2SAT 96
[2020-12-09 03:48] VITALS: PULSE 50
[2020-12-09] MEDS: acetaminophen 325 mg Tablet 650 MG PO (04:53)
[2020-12-09 05:34] LABS: Basophils % 0.4 %; Eosinophils # 0.2 10^3/uL (0.0-0.8); Eosinophils % 3.5 %; Hemoglobin 10.3 g/dL (11.5-15.3); Lymphocytes # 1.4 10^3/uL (0.8-4.8); Mean Corpuscular HGB Conc 33.2 g/dL (30.0-36.0); Mean Corpuscular Hemoglobin 32.5 pg (28.0-34.0); Mean Corpuscular Volume 97.8 fl (81-99); Mean Platelet Volume 11.4 fL (7.4-10.4); Monocytes # 0.5 10^3/uL (0.2-0.9); Monocytes % 10.4 %; Neutrophils # 2.72 10^3/uL (1.8-7.7); Neutrophils % 56.3 %; Nucleated Red Blood Cells % 0 %; Platelet Count 99 10^3/cmm (130-400); Red Blood Count 3.17 10^6/uL (4.1-5.3); Red Cell Distribution Width 12.3 % (12.1-15.1); White Blood Count 4.8 10^3/uL (4.0-10.0)
[2020-12-09 06:05] LABS: Alanine Aminotransferase 9 U/L (0-33); Albumin Level 3.4 g/dL (3.5-5.2); Alkaline Phosphatase 43 IU/L (35-105); Anion Gap 9.2 (5-19); Aspartate Amino Transferase 17 U/L (0-32); Blood Urea Nitrogen 17 mg/dL (8-23); Calcium 9.6 mg/dL (8.5-10.5); Carbon Dioxide 32 mmol/L (22-29); Chloride 99 mmol/L (98-107); Globulin 1.9 g/dL (1.3-4.6); Glucose 93 mg/dL (65-115); Magnesium 1.5 mg/dL (1.7-2.3); Osmolality Calculated 285 mOsm/kg (285-295); Phosphorus 3.1 mg/dL (2.5-4.5); Potassium 3.2 mmol/L (3.5-5.1); Sodium 137 mmol/L (136-145); Total Bilirubin 0.7 mg/dL (0.15-1.2); Total Protein 5.3 g/dL (6.6-8.7)
[2020-12-09 06:06] LABS: Chol HDL Ratio 2.66 mg/dL (0.0-4.40); Cholesterol 154 mg/dL (0-200); HDL Cholesterol 58 mg/dL (60-100); LDL Cholesterol Calculated 75 mg/dL (50-129); Triglycerides 106 mg/dL (0-150); VLDL Cholestrol Calculation 21 mg/dL (0-30)
[2020-12-09 06:21] LABS: Estmated Average Glucose 94; Hemoglobin A1C 4.9 % (4.0-6.0)
[2020-12-09] MEDS: regadenoson 0.4 Mg/5 ml Syringe IVP (08:00)
[2020-12-09] MEDS: ondansetron 2 mg/ML SDV 2 mL 4 MG IVP (08:11)
[2020-12-09 08:17] VITALS: BP 109/61; PULSE 67
[2020-12-09] MEDS: magnesium lactate 84 mg Tablet PO (09:25)
[2020-12-09] MEDS: gabapentin 300 mg Capsule PO (09:25)
[2020-12-09] MEDS: potassium chloride ER 20 mEq Tablet 40 MEQ PO (09:25)
[2020-12-09] MEDS: aspirin 81 mg EC Tablet PO (09:25)
[2020-12-09] MEDS: pantoprazole DR 40 mg Tablet PO (09:25)
[2020-12-09] MEDS: ferrous gluconate 324 mg Tablet PO (09:25)
[2020-12-09] MEDS: apixaban 5 mg Tablet PO (09:27)
--- NOTE | 2020-12-09 09:54 | PC.CHAP ---
Pastoral Care Encounter/Spiritual Assessment Type of Contact [] Declined application development team lead visit [] Patient/Family/Request visit [] Outpatient visit [] Follow-up visit [] Physician referral [] Code/Alert [x] Routine visit [] Staff referral [] Actively dying [] Patient sleeping [] Family support [] [] Out of room [] Palliative care [] [x] Receiving care in room [] Pre-surgical visit [] Trauma [] Long length of stay [] ICU visit [] Other: Relational/Emotional Strength [] Patient feels connected with others/family/visitors/staff [] Distress [] Loneliness/isolation [] Abandonment Spirituality of Patient [] Person of Lianne [] Attends Synagogue of their Lianne [] Believes in Prayer [] Reads Bible or Holiness materials [] There are Spiritual issues to be addressed Mechanical Insulator Interventions [x] Prayer [] Active listening [] Non-anxious presence [] Spiritual/emotional support [] Crisis/trauma care [] Spiritual counseling [] Bereavement support [] Provided bereavement packet [] Provided Bible/devotional materials [] Provided toy/stuffed animal, coloring book to patient or family member [] Provided Communion [] Anointing/Forest [] Salvation [x] Completed spiritual assessment [] Other: Impact on Illness or Injury [] Angry [] Fearful [] Anxious [] Often cries [] Exhaustion [] Unable to work [] Unable to attend scientology [] Unable to walk/stand [] Unable to read [] Unable to drive [] Unable to eat/drink [] Unable to sleep [] Unable to be with family [] Patient intubated [] Other: Summary Time spent with patient
[2020-12-09 11:39] VITALS: BP 152/71; PULSE 56; RESP 13; O2SAT 92
--- NOTE | 2020-12-09 13:01 | PC.NURSE ---
Notified Dr gold of patients HR instructions to hold am does of metoprolol
--- NOTE | 2020-12-09 14:32 | ECG_ITS ---
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 The perfusion scan will be documented separately. DATA: Baseline heart rate was 54 beats per minute. Baseline blood pressure was 166/84 millimeters of mercury. Target heart rate was 137. Maximum heart rate achieved was 78. which was 56 % of the predicted target heart rate. Maximum blood pressure was 166/84 millimeters of mercury. The reason for ending the test was completion of the protocol. The patient did not experience any symptoms. ELECTROCARDIOGRAM: BASELINE: Atrial fibrillation. Normal axis. Interventricular conduction delay otherwise, no ST-T changes suggestive of ischemia noted. No arrhythmia noted. EXERCISE: After Lexiscan injection, no ST-T changes suggestive of ischemic noted. No arrhythmia noted. CONCLUSION: Please note due to baseline abnormality of the EKG specificity and sensitivity of the EKG portion of LexiScan MIBI stress test will be low 1. EKG not suggestive of ischemia 2. Lexiscan injection unremarkable. 3. Perfusion scan will be documented separately. Electronically Signed On 12-10-2020 21:16:50 CDT by JANES OLIVERA [id number]
--- NOTE | 2020-12-09 15:50 | P.DS_ITS ---
Discharge Providers Date of Admission: 12/08/20 17:45 Date of Discharge: December 09, 2020 Attending Provider at Admission: Ino Carballo MD Attending Provider at Discharge: Ino Carballo MD Primary Care Provider: Renee Ferguson NP Diagnoses at Discharge Discharge Diagnosis (1) Chest pain: Status: Acute (2) Atrial fibrillation: Status: Acute Qualifiers: Atrial fibrillation type: unspecified Qualified Code(s): I48.91 - Unspecified atrial fibrillation (3) Hyperlipidemia: Status: Acute (4) HTN (hypertension): Status: Acute Qualifiers: Hypertension type: essential hypertension Qualified Code(s): I10 - Essential (primary) hypertension (5) COVID-19: Status: Resolved Reason for Visit Reason for Visit: CHEST PAIN Hospital Course Hospital Course Adele Garland is a 85 year old female with past medical history of atrial fibrillation on anticoagulation with Eliquis, hypertension, hyperlipidemia presented to the ER today after developing chest pain at rest today morning for which she required 1 nitro patch in the ER and after that pain resolved. Patient states usually she does not have chest pain on exertion. Pain was stabbing in nature not nonradiating not reproducible. Denies any nausea vomiting, headache. Patient also has recent history of COVID-19 2 months ago for which she required monoclonal antibodies. She is a non-smoker with family history of CAD in sister and mother both after the age of 60 years. Any recent change in medications, acid reflux, difficulty in breathing, cough. Blood work in the ER showed a white of 5.3, hemoglobin of 10.8, sodium of 137, potassium of 3.4, creatinine of 0.8, with chest x-ray as below, baseline tro ponin of 21 without any delta being checked. She was admitted for evaluation of chest pain. D-dimer was elevated. CTA was done and was negative for PE and aortic dissection. Her hospitalization was co mplicated by her developing slightly high blood pressure and bradycardia overnight. Her dose of metoprolol was decreased. Patient denied having any further chest pain though was complaining of occasional chest pressure on eating. She underwent Lexiscan stress test on December 09 which was negative for any sign of ischemia. Patient was advised to make sure she is sitting up after having her meals. She is been discharged on PPIs in hemodynamically stable condition Physical Exam Narrative: EXAM NARRATIVE: General: No acute distress, AO x3 HEENT: PERRLA, pupils bilaterally equal and reactive Chest: Normal vesicular breath sounds, no added sounds, equal good air entry bilaterally CVS: S1-S2 irregularly irregular no murmurs, no tachycardia, no gallops, no rubs Abdomen: Soft, nontender, no organomegaly, bowel sounds present Neuro: No focal deficits, no facial deformity, AO x3, power 5/5 in all limbs Discharge Data Data Completed and Pending: Completed Studies During Hospitalization Category Date Time Status CT angio chest PE protcl [id number] Urge nt Cat Scan 12/08/20 17:[address] MIBI [Sestamibi Stress Test Reque st Exams 12/09/20 14:32 Draft ] Routine XR chest 1V tamir ble [id number] Urgent Exams 12/08/20 15:20 Completed NM jhonatan perf SPECT r/s* [id number] Routin e Nuc Med 12/09/20 17:47 Completed Pending at discharge Category Date Time Status NM jhonatan perf SPECT r/s* [id number] Routin e Nuc Med 12/10/20 Ordered CV. echo complete * [id number] Routine Ultrasound 12/09/20 17:56 Taken Labs from last 24 hours 12/09/20 12/09/20 12/09/20 04:33 04:33 04:33 WBC RBC Hgb Hct MCV MCH MCHC RDW Plt Count MPV Neut % (Auto) Lymph % (Auto) Smith % (Auto) Eos % (Auto) Baso % (Auto) Neut # (Auto) Lymph # (Auto) Smith # (Auto) Eos # (Auto) Baso # (Auto) Nucleated RBC % (a uto) Nucleated RBCs # D-Dimer Sodium 137 Potassium 3.2 L Chloride 99 Carbon Dioxide 32 H Anion Gap 9.2 BUN 17 Creatinine 0.8 GFR Calculation Not Reportable Glucose 93 Estimat Average Gl ucose 94 Hemoglobin A1c 4.9 Calculated Osmolal ity 285 Calcium 9.6 Phosphorus 3.1 Magnesium 1.5 L Iron TIBC % Saturation Unsat Iron Binding Total Bilirubin 0.7 AST 17 ALT 9 Alkaline Phosphata se 43 Troponin T Baselin e Troponin T 120 Min [place] Delta Troponin T Troponin T Hi Sens 6Hr Troponin T Hi Sens 6Hr Delta NT-Pro-B Natriuret Pep Total Protein 5.3 L Albumin 3.4 L Globulin 1.9 Triglycerides 106 Cholesterol 154 LDL Cholesterol, C alc 75 Total VLDL Cholest aria 21 HDL Cholesterol 58 L Cholesterol/HDL Ra favian 2.66 Procalcitonin TSH 12/09/20 12/08/20 12/08/20 04:33 22:00 18:00 WBC 4.8 RBC 3.17 L Hgb 10.3 L Hct 31.0 L MCV 97.8 MCH 32.5 MCHC 33.2 RDW 12.3 Plt Count 99 L MPV 11.4 H Neut % (Auto) 56.3 Lymph % (Auto) 29.0 Smith % (Auto) 10.4 Eos % (Auto) 3.5 Baso % (Auto) 0.4 Neut # (Auto) 2.72 Lymph # (Auto) 1.4 Smith # (Auto) 0.5 Eos # (Auto) 0.2 Baso # (Auto) 0.0 Nucleated RBC % (a uto) 0 Nucleated RBCs # 0.0 D-Dimer Sodium Potassium Chloride Carbon Dioxide Anion Gap BUN Creatinine GFR Calculation Glucose Estimat Average Gl ucose Hemoglobin A1c Calculated Osmolal ity Calcium Phosphorus Magnesium Iron TIBC % Saturation Unsat Iron Binding Total Bilirubin AST ALT Alkaline Phosphata se Troponin T Baselin e Troponin T 120 Min [place] 18.98 H Delta Troponin T -2.02 L Troponin T Hi Sens 6Hr 20.92 H Troponin T Hi Sens 6Hr Delta -0.08 L NT-Pro-B Natriuret Pep Total Protein Albumin Globulin Triglycerides Cholesterol LDL Cholesterol, C alc Total VLDL Cholest aria HDL Cholesterol Cholesterol/HDL Ra favian Procalcitonin TSH 12/08/20 12/08/20 12/08/20 15:45 15:45 15:45 WBC RBC Hgb Hct MCV MCH MCHC RDW Plt Count MPV Neut % (Auto) Lymph % (Auto) Smith % (Auto) Eos % (Auto) Baso % (Auto) Neut # (Auto) Lymph # (Auto) Smith # (Auto) Eos # (Auto) Baso # (Auto) Nucleated RBC % (a uto) Nucleated RBCs # D-Dimer 0.79 H Sodium Potassium Chloride Carbon Dioxide Anion Gap BUN Creatinine GFR Calculation Glucose Estimat Average Gl ucose Hemoglobin A1c Calculated Osmolal ity Calcium Phosphorus Magnesium Iron 92 TIBC 257 % Saturation 35.7 Unsat Iron Binding 165 Total Bilirubin AST ALT Alkaline Phosphata se Troponin T Baselin e Troponin T 120 Min [place] Delta Troponin T Troponin T Hi Sens 6Hr Troponin T Hi Sens 6Hr Delta NT-Pro-B Natriuret Pep 1770 H Total Protein Albumin Globulin Triglycerides Cholesterol LDL Cholesterol, C alc Total VLDL Cholest aria HDL Cholesterol Cholesterol/HDL Ra favian Procalcitonin 0.05 TSH 1.72 12/08/20 12/08/20 12/08/20 15:45 15:45 15:45 WBC 5.3 RBC 3.28 L Hgb 10.8 L Hct 31.2 L MCV 95.1 MCH 32.9 MCHC 34.6 RDW 12.3 Plt Count 111 L MPV 11.0 H Neut % (Auto) 69.4 Lymph % (Auto) 19.7 Smith % (Auto) 8.0 Eos % (Auto) 1.9 Baso % (Auto) 0.6 Neut # (Auto) 3.66 Lymph # (Auto) 1.0 Smith # (Auto) 0.4 Eos # (Auto) 0.1 Baso # (Auto) 0.0 Nucleated RBC % (a uto) 0 Nucleated RBCs # 0.0 D-Dimer Sodium 137 Potassium 3.4 L Chloride 98 Carbon Dioxide 30 H Anion Gap 12.4 BUN 15 Creatinine 0.8 GFR Calculation Not Reportable Glucose 110 Estimat Average Gl ucose Hemoglobin A1c Calculated Osmolal ity 285 Calcium 9.4 Phosphorus Magnesium Iron TIBC % Saturation Unsat Iron Binding Total Bilirubin AST ALT Alkaline Phosphata se Troponin T Baselin e 21 H Troponin T 120 Min [place] Delta Troponin T Troponin T Hi Sens 6Hr Troponin T Hi Sens 6Hr Delta NT-Pro-B Natriuret Pep Total Protein Albumin Globulin Triglycerides Cholesterol LDL Cholesterol, C alc Total VLDL Cholest aria HDL Cholesterol Cholesterol/HDL Ra favian Procalcitonin TSH Addt'l Data from Hospital Stay: Lexiscan stress test PERFUSION FINDINGS Small area of fixed perfusion defect noted in distal anteroseptal wall suggestive of old myocardial infarction versus scarring. FUNCTIONAL RESULTS (calculated via Gated SPECT) Stress Image LV EF (%): 66 Stress EDV (mL):105 TID: 1.03 Stress ESV (mL):36 Rest Image LV EF (%): 66 FUNCTIONAL FINDINGS: There is normal left ventricular systolic function. IMPRESSIONS This study is negative for ischemia. EKG segment will be documented separately. Mandy Maldonado MD (Electronically Signed) Final Date: 09 December 2020 13:25 Laboratory Results WBC 4.8 10^3/uL (4.0- 10.0) 12/09/20 04:33 RBC 3.17 10^6/uL (4.1 -5.3) L 12/09/20 04:33 Hgb 10.3 g/dL (11.5-1 5.3) L 12/09/20 04:33 Hct 31.0 % (37.0-47.0 ) L 12/09/20 04:33 MCV 97.8 fl (81-99) 12/09/20 04:33 MCH 32.5 pg (28.0-34. 0) 12/09/20 04:33 MCHC 33.2 g/dL (30.0-3 6.0) 12/09/20 04:33 RDW 12.3 % (12.1-15.1 ) 12/09/20 04:33 Plt Count 99 10^3/cmm (130- 400) L 12/09/20 04:33 MPV 11.4 fL (7.4-10.4 ) H 12/09/20 04:33 Neut % (Auto) 56.3 % 12/09/20 04:33 Lymph % (Auto) 29.0 % 12/09/20 04:33 Smith % (Auto) 10.4 % 12/09/20 04:33 Eos % (Auto) 3.5 % 12/09/20 04:33 Baso % (Auto) 0.4 % 12/09/20 04:33 Neut # (Auto) 2.72 10^3/uL (1.8 -7.7) 12/09/20 04:33 Lymph # (Auto) 1.4 10^3/uL (0.8- 4.8) 12/09/20 04:33 Smith # (Auto) 0.5 10^3/uL (0.2- 0.9) 12/09/20 04:33 Eos # (Auto) 0.2 10^3/uL (0.0- 0.8) 12/09/20 04:33 Baso # (Auto) 0.0 10^3/uL (0.0- 0.1) 12/09/20 04:33 Nucleated RBC % (a uto) 0 % 12/09/20 04:33 Nucleated RBCs # 0.0 /100WBC 12/09/20 04:33 D-Dimer 0.79 ug/mIFEU (0- 0.59) H 12/08/20 15:45 Sodium 137 mmol/L (136-1 45) 12/09/20 04:33 Potassium 3.2 mmol/L (3.5-5 .1) L 12/09/20 04:33 Chloride 99 mmol/L (98-107 ) 12/09/20 04:33 Carbon Dioxide 32 mmol/L (22-29) H 12/09/20 04:33 Anion Gap 9.2 (5-19) 12/09/20 04:33 BUN 17 mg/dL (8-23) 12/09/20 04:33 Creatinine 0.8 mg/dL (0.5-0. 9) 12/09/20 04:33 GFR Calculation Not Reportable 12/09/20 04:33 Glucose 93 mg/dL (65-115) 12/09/20 04:33 Estimat Average Gl ucose 94 12/09/20 04:33 Hemoglobin A1c 4.9 % (4.0-6.0) 12/09/20 04:33 Calculated Osmolal ity 285 mOsm/kg (285- 295) 12/09/20 04:33 Calcium 9.6 mg/dL (8.5-10 .5) 12/09/20 04:33 Phosphorus 3.1 mg/dL (2.5-4. 5) 12/09/20 04:33 Magnesium 1.5 mg/dL (1.7-2. 3) L 12/09/20 04:33 Iron 92 ug/dL (37-145) 12/08/20 15:45 TIBC 257 mcg/dl 12/08/20 15:45 % Saturation 35.7 % (20-50) 12/08/20 15:45 Unsat Iron Binding 165 ug/dL (112-34 7) 12/08/20 15:45 Total Bilirubin 0.7 mg/dL (0.15-1 .2) 12/09/20 04:33 AST 17 U/L (0-32) 12/09/20 04:33 ALT 9 U/L (0-33) 12/09/20 04:33 Alkaline Phosphata se 43 IU/L (35-105) 12/09/20 04:33 Troponin T Baselin e 21 ng/L (0-10) H 12/08/20 15:45 Troponin T 120 Min [place] 18.98 ng/L (0-10) H 12/08/20 18:00 Delta Troponin T -2.02 ABS# (0-10) L 12/08/20 18:00 Troponin T Hi Sens 6Hr 20.92 ng/L (0-10) H 12/08/20 22:00 Troponin T Hi Sens 6Hr Delta -0.08 ng/L (0-12) L 12/08/20 22:00 NT-Pro-B Natriuret Pep 1770 pg/mL (0-450 ) H 12/08/20 15:45 Total Protein 5.3 g/dL (6.6-8.7 ) L 12/09/20 04:33 Albumin 3.4 g/dL (3.5-5.2 ) L 12/09/20 04:33 Globulin 1.9 g/dL (1.3-4.6 ) 12/09/20 04:33 Triglycerides 106 mg/dL (0-150) 12/09/20 04:33 Cholesterol 154 mg/dL (0-200) 12/09/20 04:33 LDL Cholesterol, C alc 75 mg/dL (50-129) 12/09/20 04:33 Total VLDL Cholest aria 21 mg/dL (0-30) 12/09/20 04:33 HDL Cholesterol 58 mg/dL (60-100) L 12/09/20 04:33 Cholesterol/HDL Ra favian 2.66 mg/dL (0.0-4 .40) 12/09/20 04:33 Procalcitonin 0.05 ng/mL (0-0.5 ) 12/08/20 15:45 TSH 1.72 uIU/mL (0.27 -4.20) 12/08/20 15:45 Impressions Chest X-Ray 12/08/20 15:20 IMPRESSION: 1. Cardiac enlargement unchanged. 2. No acute cardiopulmonary process identified. Chest CTA 12/08/20 17:28 IMPRESSION: No evidence of pulmonary embolism. REFERENCES: Abril Macias, et al. Guidelines for Management of Incidental Pulmonary Nodules Detected on CT Images: From the Fleischner Society 2017. Radiology. 2017;284(1):228-243. Radiation Dose CTDIVOL = (mGy): DLP = 525.49 (mGy-cm) Vitals: Last Vital Signs Temp 98 F 12/09/20 03:38 Pulse 67 12/09/20 08:17 Resp 16 12/09/20 03:38 BP 109/61 12/09/20 08:17 Pulse Ox 96 12/09/20 03:38 Discharge Plan Discharge Patient Disposition: Home Condition: Stable Prescriptions: New aspirin 81 mg Tablet,Delayed Release (Dr/Ec) 81 mg PO DAILY 30 Days Qty: 30 RF: 0 Continued gabapentin 300 mg capsule 300 mg PO TID RF: 0 Eliquis 5 mg tablet 5 mg PO BID Qty: 180 RF: 3 multivitamin Tablet 1 tab PO DAILY RF: 0 Tylenol Ex Str Rapid Release 500 mg Tablet 1,000 mg PO Q4H PRN (Reason: Pain) RF: 0 pravastatin 10 mg tablet 10 mg PO QAM RF: 0 ibuprofen 200 mg Tablet 400 mg PO DAILY RF: 0 Prilosec 20 mg Capsule,Delayed Release(Dr/Ec) 20 mg PO QAM RF: 0 triamterene-hydrochlorothiazid 75-50 mg tablet 1 tab PO QAM RF: 0 potassium gluconate 595 mg (99 mg) Tablet 595 mg PO QAM RF: 0 Changed metoprolol tartrate 50 mg tablet 25 mg PO BID Qty: 0 RF: 0 Discharge Orders: Discharge Order (Routine); Ordered 12/09/20 Ordered By: Ino Carballo Referrals: Renee Ferguson NP [Primary Care Provider] - 2 weeks Discharge Diet: Cardiac Discharge Activity: Resume usual activity Patient Instructions: Opioid Safety Discharge Attestations Time Spent in Discharge Care*: greater than 30 min Specific Discharge Activities: educating patient, discussing with pcp/other providers, discussing with case resolution specialist/social workers/dc planners, documenting/other paperwork and evaluating patient/reviewing data Status at Discharge: Cognitive status at discharge: cognitively intact , Behavioral status at discharge: cooperative , Functional status at discharge: independent ambulation Overall status at discharge: patient is back to baseline Quality Metrics Clinical Quality Measures During this hospital stay, did patient experience: None Coding Level of Care Code Acute Chg FW DC note Diagnoses Chest pain R07.9 Atrial fibrillation I48.91 Atrial fibrillation type: unspecified Hyperlipidemia E78.5 HTN (hypertension) I10 Hypertension type: essential hypertension COVID-19 U07.1
[2020-12-09 16:09] VITALS: BP 139/69; PULSE 56; RESP 20; O2SAT 95
[2020-12-09 16:46] VITALS: BP 139/69; PULSE 56; RESP 20; O2SAT 95
--- NOTE | 2020-12-09 17:30 | PC.NURSE ---
Discharge Note Patient discharged to home via private vehicle accompanied by son. Discharge instructions reviewed with patient and/or accounts payable representative. Mobile pharmacy medications and/or prescriptions provided. Belongings/home medications returned.
--- NOTE | 2020-12-09 17:47 | NMCV_ITS ---
NM jhonatan perf SPECT r/s* [id number] Adele Garland Age: 85 Gender: F : 1935 Exam Date: 12/09/2020 07:27 Ordering Phys: Ino Carballo MD Technologist: STEPHANY Conner Exam Location: [facility] Indications: CHEST PAIN STRESS TEST Please [facility] IMAGE PROTOCOL Rest/Stress 1 Lexiscan Day Radiopharmaceutical Dose (mCi) Administration Site Administered by Rest: Tc-99m 10.8 IV STEPHANY Spicer Sestamibi Stress:Tc-99m 32.3 IV STEPHANY Spicer Sestamibi Rest: 09-Dec-2020 60 Discovery 630 Stress: 09-Dec-2020 30 Discovery 630 0.4mg Lexiscan. Supine position only as patient was unable to lay prone. SPECT RESULTS Technical Quality: Excellent Raw Data Analysis: Normal Image Corrections: No attenuation or motion correction applied Summed Stress Score: 1 Summed Rest Score: 1 Summed Difference Score: 1 PERFUSION FINDINGS Small area of fixed perfusion defect noted in distal anteroseptal wall suggestive of old myocardial infarction versus scarring. FUNCTIONAL RESULTS (calculated via Gated SPECT) Stress Image LV EF (%): 66 Stress EDV (mL):105 TID: 1.03 Stress ESV (mL):36 Rest Image LV EF (%): 66 FUNCTIONAL FINDINGS: There is normal left ventricular systolic function. IMPRESSIONS This study is negative for ischemia. EKG segment will be documented separately. Mandy Maldonado MD (Electronically Signed) Final Date: 09 December 2020 13:25 S
--- NOTE | 2020-12-09 17:56 | USCV_ITS ---
Adele Garland Age: 85 Gender: F : 1935 Exam Date: 12/09/2020 06:59 Ordering Phys: Ino Carballo MD Technologist: Carol Richardson Exam Location: [facility] [place] Indication: AFIB, BP: 139 / 67 HR: 60 Rhythm: Sinus Technical Quality: Adequate MEASUREMENTS (Male / Female) Normal Values 2D ECHO LV Diastolic Diameter PLAX 4.8 cm 4.2 - 5.9 / 3.9 - 5.3 cm LV Systolic Diameter PLAX 3.6 cm IVS Diastolic Thickness 1.5 cm 0.6 - 1.0 / 0.6 - 0.9 cm IVS Systolic Thickness 1.9 cm LVPW Diastolic Thickness 1.7 cm 0.6 - 1.0 / 0.6 - 0.9 cm LVPW Systolic Thickness 2.4 cm LVOT Diameter 2.0 cm LV Ejection Fraction 2D Teich 50.6 % LV Ejection Fraction MOD 2C 49.5 % LV Ejection Fraction 2C AL 49.6 % LA Diameter 4.2 cm LA Width 4.2 cm LA Height 6.9 cm RA Width 3.7 cm RA Height 6.5 cm Aorta at Sinotubular Diameter 2.1 cm M-MODE MV E Point Septal Separation 0.7 cm DOPPLER AV Peak Velocity 134.7 cm/s MV Peak Velocity 165.0 cm/s MV Area PHT 5.4 cm squared Mitral E to A Ratio 2.2 MV E' Velocity 61.0 cm/s Mitral E to MV E' Ratio 8.8 Mitral E to LV E' Lateral Ratio 9.7 Mitral E to LV E' Septal Ratio 8.2 TR Peak Velocity 352.8 cm/s TR Peak Gradient 49.8 mmHg TR Mean Velocity 255.7 cm/s TR Mean Gradient 29.1 mmHg TR Velocity Time Integral 133.2 cm TV Peak E Velocity 66.0 cm/s Right Atrial Pressure 3.0 mmHg Pulmonary Artery Systolic Pressu 52.8 mmHg PV Peak Velocity 84.0 cm/s RV Acceleration Time 0.1 s RV Ejection Time 0.4 s RV AcT/ET 0.2 FINDINGS Left Ventricle Mildly increased left ventricular cavity size. Mildly decreased left ventricular systolic function. Global left ventricular hypokinesis. Left ventricular ejection fraction is estimated at 50 %. Grade III/IV diastolic dysfunction (restrictive filling pattern), severely elevated filling pressures. Right Ventricle The right ventricle is normal in size and function. Severe pulmonary hypertension, RVSP 72 mmHg. Right Atrium Moderately increased right atrial size. Left Atrium Moderately increased left atrial size. Mitral Valve Mildly thickened mitral valve. No mitral valve stenosis. Moderate mitral valve regurgitation. Moderate mitral annular calcification. Aortic Valve Mild aortic valve calcification. No aortic valve stenosis. Moderate aortic valve regurgitation. Tricuspid Valve Severe tricuspid valve regurgitation. Pulmonic Valve Structurally normal pulmonic valve without significant stenosis. There is no pulmonic regurgitation. Pericardium Normal pericardium without effusion. Aorta Normal ascending aorta dimension. CONCLUSIONS 1-Mildly increased left ventricular cavity size. Mildly decreased left ventricular systolic function. Global left ventricular hypokinesis. Left ventricular ejection fraction is estimated at 50 %. Grade III/IV diastolic dysfunction (restrictive filling pattern), severely elevated filling pressures. 2-Moderate biatrial enlargement 3-Mildly thickened mitral valve. No mitral valve stenosis. Moderate mitral valve regurgitation. Moderate mitral annular calcification. 4-Mild aortic valve calcification. No aortic valve stenosis. Moderate aortic valve regurgitation. 5-Severe tricuspid valve regurgitation. 6-The right ventricle is normal in size and function. Moderate to severe pulmonary hypertension, RVSP 57 mmHg. 7-Right atrial pressure is around 20 mm of mercury. 8-There are no prior echocardiogram studies to compare. Mandy Maldonado MD (Electronically Signed) Final Date: 09 December 2020 21:04 S
== END 2020-12-09 17:40 | disposition home or self-care (01) ==
LOC: ER 17:14 → ER IP 20:25 → CSU 20:52
PROVIDERS: Admitting Provider Student in an Organized Health Care Education/Training Program; Emergency Provider Emergency Medicine; PCP Nurse Practitioner Family; Visit Provider Student in an Organized Health Care Education/Training Program
DX: R07.9 Chest pain, unspecified (principal); I48.91 Unspecified atrial fibrillation; E78.5 Hyperlipidemia, unspecified; I10 Essential (primary) hypertension; Z79.01 Long term (current) use of anticoagulants; Z86.16 Personal history of COVID-19; Z82.49 Family history of ischemic heart disease and other diseases of the circulatory system; K21.9 Gastro-esophageal reflux disease without esophagitis; Z79.899 Other long term (current) drug therapy
CPT/HCPCS: 36415; 71045; 71275; 78452; 80048; 80053; 80061; 83036; 83540; 83550; 83735; 83880; 84100; 84145; 84443; 84484; 85025; 85378; 93005; 93017; 93306; 94664; 96374; 99285; A9500; G0378; J2405; J2785; Q9967

== ENCOUNTER → 2022-02-01 15:31 | Outpatient (BNVA) | payer MEDICARE, SELFPAY | PROVIDERS: PCP Nurse Practitioner Family; Visit Provider Podiatrist Foot & Ankle Surgery | DX: Q82.8 Other specified congenital malformations of skin (principal); B35.1 Tinea unguium; M20.40 Other hammer toe(s) (acquired), unspecified foot | CPT/HCPCS: 11721; 17110; 73610; 99204 ==

== ENCOUNTER → 2022-02-21 11:16 | Outpatient (BNVA) | payer MEDICARE, SELFPAY | PROVIDERS: PCP Nurse Practitioner Family; Visit Provider Podiatrist Foot & Ankle Surgery | DX: Q82.8 Other specified congenital malformations of skin (principal); B35.1 Tinea unguium; M20.40 Other hammer toe(s) (acquired), unspecified foot | CPT/HCPCS: 17110; 99213 ==

== ENCOUNTER 2022-07-26 16:55 | Emergency (ER) | payer MEDICARE, SELFPAY ==
[2022-07-26 16:59] VITALS: BMI 25.6
--- NOTE | 2022-07-26 17:01 | XRR_ITS ---
PROCEDURE INFORMATION: Exam: XR Chest Exam date and time: 07/26/2022 5:04 PM Age: 86 years old Clinical indication: Cough; Additional info: Dyspnea/cough TECHNIQUE: Imaging protocol: Radiologic exam of the chest. Views: 1 view. COMPARISON: CR XR chest 1V portable [id number] 12/08/2020 3:26 PM FINDINGS: Lungs: Unremarkable. No consolidation. Pleural spaces: Unremarkable. No pleural effusion. No pneumothorax. Heart/Mediastinum: Mild cardiomegaly. Bones/joints: Thoracic curvature. Severe degenerative changes and rotator cuff arthropathy in the shoulders. XR/XR chest 1V portable [id number] IMPRESSION: No acute findings.
--- NOTE | 2022-07-26 17:01 | ECG_ITS ---
[facility] Test Date: 2022-07-26 Pat Name: Adele Garland Department: Room: Gender: Female Child Development Assistant: : 1935 Requested By: Jimmie Benton Order Number: [id number] Alia MD: Evaristo Turcios M.D. Measurements Intervals [place] Rate: 47 P: 0 CO: 0 QRS: 74 QRSD: 104 T: 56 QT: 482 QTc: 427 Interpretive Statements ATRIAL FIBRILLATION WITH SLOW VENTRICULAR RESPONSE NONSPECIFIC ST & T-WAVE ABNORMALITY Compared to ECG 12/09/2020 00:35:51 T-wave abnormality now present Incomplete right bundle-branch block no longer present Myocardial infarct finding no longer present Electronically Signed On 07-27-2022 13:54:44 CDT by Evaristo Turcios M.D. [email or web address] [email or web address] health [email or web address] Team Zonecleveland clinic [email or web address]/[id number]
[2022-07-26 17:04] VITALS: BP 132/67; PULSE 68; RESP 16; O2SAT 96
--- NOTE | 2022-07-26 17:07 | ED_ITS ---
Documented by User: Jimmie Womack DO 07/27/22 09:21 HPI - Weakness General: Chief complaint: Weakness Stated complaint: weakness/blurry vision Time Seen by Provider: 07/26/22 16:58 Source: patient History of Present Illness: 86-year-old female presents emergency room complaining of headaches. She fell asleep while watching television she woke up she had throbbing temporal headache. Her daughter gave her ibuprofen or Tylenol for it right before the ambulance came she said she is better now she had a little bit of blurry vision with it no vomiting or diarrhea no chest pain no shortness of breath. No difficulty speech or swallowing. She had a similar weakness spell which she described as having a couple weeks ago, she states it did not last as long as this episode did is completely resolved at this time. Patient has a history of atrial fibrillation she is bradycardic on arrival here she is on apixaban and me toprolol. She has been taking all of her medications review of systems is otherwise negative. Onset (ago): minute(s) Duration: now resolved Location: other (Frontal temporal headache) Severity: moderate Relieving factors: none Exacerbating factors: none Associated symptoms: Reports headache(s); Denies chest pain, chills, confusion, melena, decreased appetite, dysuria, easy bruising, fever(s), myalgias, nausea, rash, short of breath, syncope or vomiting Review of Systems Const: Denies: fever(s) or chills ENMT: Denies: throat pain, ear or mastoid pain, nasal discharge or nasal congestion Card: Denies: chest pain or syncope Resp: Denies: dyspnea, productive cough or non-productive cough GI: Denies: abdominal pain, nausea, vomiting or melena : Denies: dysuria, urinary frequency or urinary urgency Musc: Denies: neck pain or back pain Skin/Breast: Denies: rash or pruritus Neuro: Reports: headache(s); Denies: confusion Guero/Lymph: Denies: easy bruising PFSH ED PFSH: Medical History Anticoagulant long-term use Eliquis Atrial fibrillation COVID-19 GERD (gastroesophageal reflux disease) HTN (hypertension) Hyperlipidemia Surgical History S/P cataract extraction S/P hysterectomy Family History Father Cancer LEUKEMIA Mother Cancer BREAST Other CAD (coronary artery disease) Diabetes Social History Smoking and tobacco status: never smoked Alcohol intake: never Lives independently: Yes Marital status: / Current occupational status: retired Physical Exam Const: COMMON NORMALS: no acute distress GENERAL APPEARANCE: cooperative and comfortable ORIENTATION/CONSCIOUSNESS: Yes awake, Yes oriented to person, Yes oriented to place and Yes oriented to time HENMT: COMMON NORMALS: normocephalic, atraumatic and hearing grossly normal bilaterally HEAD & SCALP: normocephalic and atraumatic Resp: COMMON NORMALS: normal respiratory effort, No retractions, No use of accessory muscles and clear to auscultation bilaterally AUSCULTATION: clear to auscultation bilaterally Cardio: COMMON NORMALS: regular rate, regular rhythm and No murmurs present (Cardio) RATE: regular rate RHYTHM: regular rhythm GI: COMMON NORMALS: Soft to palpation and No hepatosplenomegaly present AUSCULTATION: Yes normoactive bowel sounds PALPATION: Yes Soft to palpation, No Tenderness to palpation present (GI), No Guarding due to palpation present (GI) and Yes No hepatosplenomegaly present Extremity: COMMON NORMALS: normal to inspection, capillary refill normal, no c lubbing, cyanosis or edema, no calf tenderness and no pedal edema Neuro: SENSORIUM/ORIENTATION: Yes oriented to person, Yes oriented to place and Yes oriented to time Skin: COMMON NORMALS: no rashes or lesions noted GENERAL SKIN EXAM: no rashes or lesions noted Course Vital Signs: Vital signs: Vital Signs Pulse Rate 56 L 07/26/22 19:23 Respiratory Rate 18 07/26/22 19:23 Blood Pressure 148/48 07/26/22 19:23 Pulse Oximetry 98 07/26/22 19:23 Oxygen Delivery Me thod Room Air 07/26/22 19:23 MDM - Weakness Medical Decision Making Symptoms nearly completely resolved by the time patient arrives here. Symptoms Tylenol improved things. CT head is pending. Care signed out to Dr. Jair at change of shift. See final notes for diagnosis and disposition. Patient presents here with some generalized weakness blood work head CT are all normal she is back to her baseline she is stable for discharge to follow-up with PCP and return if worsening. Lab Data 07/26/22 17:17 07/26/22 17:17 Radiology Impressions Chest X-Ray 07/26/22 17:01 IMPRESSION: No acute findings. Head CT 07/26/22 17:11 IMPRESSION: No acute intracranial abnormality. Laboratory Results WBC 9.1 10^3/uL (4.0-10.0) 07/26/22 17:17 RBC 4.03 10^6/uL (4.1-5.3) L 07/26/22 17:17 Hgb 12.9 g/dL (11.5-15.3) 07/26/22 17:17 Hct 37.3 % (37.0-47.0) 07/26/22 17:17 MCV 92.6 fl (81-99) 07/26/22 17:17 MCH 32.0 pg (28.0-34.0) 07/26/22 17:17 MCHC 34.6 g/dL (30.0-36.0) 07/26/22 17:17 RDW 12.7 % (12.1-15.1) 07/26/22 17:17 Plt Count 140 10^3/cmm (130-400) 07/26/22 17:17 MPV 9.9 fL (7.4-10.4) 07/26/22 17:17 Neut % (Auto) 82.9 % 07/26/22 17:17 Lymph % (Auto) 8.8 % 07/26/22 17:17 [place] % (Auto) 6.2 % 07/26/22 17:17 Eos % (Auto) 1.1 % 07/26/22 17:17 Baso % (Auto) 0.4 % 07/26/22 17:17 Neut # (Auto) 7.54 10^3/uL (1.8-7.7) 07/26/22 17:17 Lymph # (Auto) 0.8 10^3/uL (0.8-4.8) 07/26/22 17:17 [place] # (Auto) 0.6 10^3/uL (0.2-0.9) 07/26/22 17:17 Eos # (Auto) 0.1 10^3/uL (0.0-0.8) 07/26/22 17:17 Baso # (Auto) 0.0 10^3/uL (0.0-0.1) 07/26/22 17:17 Nucleated RBC % (auto) 0 % 07/26/22 17:17 Nucleated RBCs # 0.0 /100WBC 07/26/22 17:17 Sodium 131 mmol/L (136-145) L 07/26/22 17:17 Potassium 3.2 mmol/L (3.5-5.1) L 07/26/22 17:17 Chloride 87 mmol/L (98-107) L 07/26/22 17:17 Carbon Dioxide 33 mmol/L (22-29) H 07/26/22 17:17 Anion Gap 14.2 (5-19) 07/26/22 17:17 BUN 24 mg/dL (8-23) H 07/26/22 17:17 Creatinine 1.1 mg/dL (0.5-0.9) H 07/26/22 17:17 GFR Calculation Not Reportable 07/26/22 17:17 Glucose 119 mg/dL (65-115) H 07/26/22 17:17 Calculated Osmolality 277 mOsm/kg (285-295) L 07/26/22 17:17 Calcium 9.1 mg/dL (8.5-10.5) 07/26/22 17:17 Total Bilirubin 1.1 mg/dL (0.15-1.2) 07/26/22 17:17 AST 17 U/L (0-32) 07/26/22 17:17 ALT 9 U/L (0-33) 07/26/22 17:17 Alkaline Phosphatase 59 U/L (35-105) 07/26/22 17:17 Total Protein 6.7 g/dL (6.6-8.7) 07/26/22 17:17 Albumin 4.3 g/dL (3.5-5.2) 07/26/22 17:17 Globulin 2.4 g/dL (1.3-4.6) 07/26/22 17:17 Urine Color Yellow (Yellow) 07/26/22 19:04 Urine Appearance Clear (CLEAR) 07/26/22 19:04 Urine pH 7 (5-7) 07/26/22 19:04 Ur Specific [place] 1.010 (1.005-1.030) 07/26/22 19:04 Urine Protein Neg (Negative) 07/26/22 19:04 Urine Glucose (UA) Norm (Normal) 07/26/22 19:04 Urine Ketones Negative (Negative) 07/26/22 19:04 Urine Blood Neg (Negative) 07/26/22 19:04 Urine Nitrate Negative (Negative) 07/26/22 19:04 Urine Bilirubin Neg (Negative) 07/26/22 19:04 Urine Urobilinogen 1 mg/dL (Negative) H 07/26/22 19:04 Ur Leukocyte Esterase Negative (Negative) 07/26/22 19:04 Discharge Plan Discharge Patient Disposition: Home Clinical Impression: Weakness Condition: Stable Prescriptions: No Action gabapentin 300 mg capsule 300 mg PO TID Eliquis 5 mg tablet 5 mg PO BID Qty: 60 0RF Rx Instructions: MUST have follow-up for further refills multivitamin Tablet 1 tab PO DAILY acetaminophen 500 mg Tablet 1,000 mg PO Q4H PRN (Reason: Pain) pravastatin 10 mg tablet 10 mg PO QAM ibuprofen 200 mg Tablet 400 mg PO DAILY omeprazole 20 mg Capsule,Delayed Release(Dr/Ec) 20 mg PO QAM triamterene-hydrochlorothiazid 75-50 mg tablet 1 tab PO QAM potassium gluconate 595 mg (99 mg) Tablet 595 mg PO QAM metoprolol tartrate 50 mg tablet 25 mg PO BID Qty: 0 0RF Discharge Orders: Discharge ED (Routine); Ordered 07/26/22 Ordered By: Henrique Adam Referrals: Toro Ledezma MD [Primary Care Provider] - 1-3 days Discharge Diet: Advance as tolerated Discharge Activity: Resume usual activity Patient Instructions: Weakness (ED) Coding Level of Care Code ED Flattening Press Operator for Chg Fwd Documented by User: Henrique Adam MD 07/26/22 19:58 HPI - Weakness General: Chief complaint: Weakness Stated complaint: weakness/blurry vision Time Seen by Provider: 07/26/22 16:58 PFSH ED PFSH: Medical History Anticoagulant long-term use Eliquis Atrial fibrillation COVID-19 GERD (gastroesophageal reflux disease) HTN (hypertension) Hyperlipidemia Surgical History S/P cataract extraction S/P hysterectomy Family History Father Cancer LEUKEMIA Mother Cancer BREAST Other CAD (coronary artery disease) Diabetes Social History Smoking and tobacco status: never smoked Alcohol intake: never Lives independently: Yes Marital status: / Current occupational status: retired Course Vital Signs: Vital signs: Vital Signs Pulse Rate 56 L 07/26/22 19:23 Respiratory Rate 18 07/26/22 19:23 Blood Pressure 148/48 07/26/22 19:23 Pulse Oximetry 98 07/26/22 19:23 Oxygen Delivery Me thod Room Air 07/26/22 19:23 MDM - Weakness Medical Decision Making Patient presents here with some generalized weakness blood work head CT are all normal she is back to her baseline she is stable for discharge to follow-up with PCP and return if worsening. Medical Records I reviewed the patient's medical records. Lab Data I reviewed the patient's lab results. 07/26/22 17:17 07/26/22 17:17 Radiology Impressions Chest X-Ray 07/26/22 17:01 IMPRESSION: No acute findings. Head CT 07/26/22 17:11 IMPRESSION: No acute intracranial abnormality. Laboratory Results WBC 9.1 10^3/uL (4.0-10.0) 07/26/22 17:17 RBC 4.03 10^6/uL (4.1-5.3) L 07/26/22 17:17 Hgb 12.9 g/dL (11.5-15.3) 07/26/22 17:17 Hct 37.3 % (37.0-47.0) 07/26/22 17:17 MCV 92.6 fl (81-99) 07/26/22 17:17 MCH 32.0 pg (28.0-34.0) 07/26/22 17:17 MCHC 34.6 g/dL (30.0-36.0) 07/26/22 17:17 RDW 12.7 % (12.1-15.1) 07/26/22 17:17 Plt Count 140 10^3/cmm (130-400) 07/26/22 17:17 MPV 9.9 fL (7.4-10.4) 07/26/22 17:17 Neut % (Auto) 82.9 % 07/26/22 17:17 Lymph % (Auto) 8.8 % 07/26/22 17:17 [place] % (Auto) 6.2 % 07/26/22 17:17 Eos % (Auto) 1.1 % 07/26/22 17:17 Baso % (Auto) 0.4 % 07/26/22 17:17 Neut # (Auto) 7.54 10^3/uL (1.8-7.7) 07/26/22 17:17 Lymph # (Auto) 0.8 10^3/uL (0.8-4.8) 07/26/22 17:17 [place] # (Auto) 0.6 10^3/uL (0.2-0.9) 07/26/22 17:17 Eos # (Auto) 0.1 10^3/uL (0.0-0.8) 07/26/22 17:17 Baso # (Auto) 0.0 10^3/uL (0.0-0.1) 07/26/22 17:17 Nucleated RBC % (auto) 0 % 07/26/22 17:17 Nucleated RBCs # 0.0 /100WBC 07/26/22 17:17 Sodium 131 mmol/L (136-145) L 07/26/22 17:17 Potassium 3.2 mmol/L (3.5-5.1) L 07/26/22 17:17 Chloride 87 mmol/L (98-107) L 07/26/22 17:17 Carbon Dioxide 33 mmol/L (22-29) H 07/26/22 17:17 Anion Gap 14.2 (5-19) 07/26/22 17:17 BUN 24 mg/dL (8-23) H 07/26/22 17:17 Creatinine 1.1 mg/dL (0.5-0.9) H 07/26/22 17:17 GFR Calculation Not Reportable 07/26/22 17:17 Glucose 119 mg/dL (65-115) H 07/26/22 17:17 Calculated Osmolality 277 mOsm/kg (285-295) L 07/26/22 17:17 Calcium 9.1 mg/dL (8.5-10.5) 07/26/22 17:17 Total Bilirubin 1.1 mg/dL (0.15-1.2) 07/26/22 17:17 AST 17 U/L (0-32) 07/26/22 17:17 ALT 9 U/L (0-33) 07/26/22 17:17 Alkaline Phosphatase 59 U/L (35-105) 07/26/22 17:17 Total Protein 6.7 g/dL (6.6-8.7) 07/26/22 17:17 Albumin 4.3 g/dL (3.5-5.2) 07/26/22 17:17 Globulin 2.4 g/dL (1.3-4.6) 07/26/22 17:17 Urine Color Yellow (Yellow) 07/26/22 19:04 Urine Appearance Clear (CLEAR) 07/26/22 19:04 Urine pH 7 (5-7) 07/26/22 19:04 Ur Specific [place] 1.010 (1.005-1.030) 07/26/22 19:04 Urine Protein Neg (Negative) 07/26/22 19:04 Urine Glucose (UA) Norm (Normal) 07/26/22 19:04 Urine Ketones Negative (Negative) 07/26/22 19:04 Urine Blood Neg (Negative) 07/26/22 19:04 Urine Nitrate Negative (Negative) 07/26/22 19:04 Urine Bilirubin Neg (Negative) 07/26/22 19:04 Urine Urobilinogen 1 mg/dL (Negative) H 07/26/22 19:04 Ur Leukocyte Esterase Negative (Negative) 07/26/22 19:04 Discharge Plan Discharge Patient Disposition: Home Clinical Impression: Weakness Condition: Stable Prescriptions: No Action gabapentin 300 mg capsule 300 mg PO TID Eliquis 5 mg tablet 5 mg PO BID Qty: 60 0RF Rx Instructions: MUST have follow-up for further refills multivitamin Tablet 1 tab PO DAILY acetaminophen 500 mg Tablet 1,000 mg PO Q4H PRN (Reason: Pain) pravastatin 10 mg tablet 10 mg PO QAM ibuprofen 200 mg Tablet 400 mg PO DAILY omeprazole 20 mg Capsule,Delayed Release(Dr/Ec) 20 mg PO QAM triamterene-hydrochlorothiazid 75-50 mg tablet 1 tab PO QAM potassium gluconate 595 mg (99 mg) Tablet 595 mg PO QAM metoprolol tartrate 50 mg tablet 25 mg PO BID Qty: 0 0RF Discharge Orders: Discharge ED (Routine); Ordered 07/26/22 Ordered By: Henrique Adam Referrals: Toro Ledezma MD [Primary Care Provider] - 1-3 days Discharge Diet: Advance as tolerated Discharge Activity: Resume usual activity Patient Instructions: Weakness (ED) Coding Level of Care Code ED Flattening Press Operator for Fidel Baker
--- NOTE | 2022-07-26 17:11 | CTR_ITS ---
PROCEDURE INFORMATION: Exam: CT Head Without Contrast Exam date and time: 07/26/2022 5:47 PM Age: 86 years old Clinical indication: Pain; Headache; Additional info: Headache weakness double vision TECHNIQUE: Imaging protocol: Computed tomography of the head without contrast. Radiation optimization: All CT scans at this facility use at least one of these dose optimization techniques: automated exposure control; mA and/or kV adjustment per patient size (includes targeted exams where dose is matched to clinical indication); or iterative reconstruction. REPORTING DATA: Count of CT and Cardiac NM exams in prior 12 months: This patient has received 0 known CTs and 0 known cardiac nuclear medicine studies in the 12 months prior to the current study. COMPARISON: No relevant prior studies available. RADIATION DOSE METRICS: Total DLP (mGy-cm): 1126 FINDINGS: Brain: Mild diffuse cortical volume loss. 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 No intracranial hemorrhage. Cerebral ventricles: No ventriculomegaly. Paranasal sinuses: Visualized sinuses are unremarkable. No fluid levels. Mastoid air cells: Visualized mastoid air cells are well aerated. Orbital cavities: Cataract surgery. Bones/joints: Unremarkable. No acute fracture. Soft tissues: Unremarkable. Vasculature: No hyperdense artery. CT/CT head wo con* [id number] IMPRESSION: No acute intracranial abnormality.
[2022-07-26 17:24] LABS: Basophils % 0.4 %; Eosinophils # 0.1 10^3/uL (0.0-0.8); Eosinophils % 1.1 %; Hematocrit 37.3 % (37.0-47.0); Hemoglobin 12.9 g/dL (11.5-15.3); Lymphocytes # 0.8 10^3/uL (0.8-4.8); Lymphocytes % 8.8 %; Mean Corpuscular HGB Conc 34.6 g/dL (30.0-36.0); Mean Corpuscular Volume 92.6 fl (81-99); Mean Platelet Volume 9.9 fL (7.4-10.4); Monocytes # 0.6 10^3/uL (0.2-0.9); Monocytes % 6.2 %; Neutrophils # 7.54 10^3/uL (1.8-7.7); Neutrophils % 82.9 %; Nucleated Red Blood Cells % 0 %; Platelet Count 140 10^3/cmm (130-400); Red Blood Count 4.03 10^6/uL (4.1-5.3); Red Cell Distribution Width 12.7 % (12.1-15.1); White Blood Count 9.1 10^3/uL (4.0-10.0)
[2022-07-26 18:42] LABS: Alanine Aminotransferase 9 U/L (0-33); Albumin Level 4.3 g/dL (3.5-5.2); Alkaline Phosphatase 59 U/L (35-105); Anion Gap 14.2 (5-19); Aspartate Amino Transferase 17 U/L (0-32); Blood Urea Nitrogen 24 mg/dL (8-23); Calcium 9.1 mg/dL (8.5-10.5); Carbon Dioxide 33 mmol/L (22-29); Chloride 87 mmol/L (98-107); Globulin 2.4 g/dL (1.3-4.6); Glucose 119 mg/dL (65-115); Osmolality Calculated 277 mOsm/kg (285-295); Potassium 3.2 mmol/L (3.5-5.1); Sodium 131 mmol/L (136-145); Total Bilirubin 1.1 mg/dL (0.15-1.2); Total Protein 6.7 g/dL (6.6-8.7)
--- NOTE | 2022-07-26 19:04 | PC.NURSE ---
REPORT GIVEN TO [facility].
[2022-07-26 19:08] LABS: Add Urine Microscopic? NO; Charge for UA Resulting for Rev
[2022-07-26] MEDS: sodium chloride 0.9% 1,000 ML 999 ML IV (19:22)
[2022-07-26 19:23] VITALS: BP 148/48; PULSE 56; RESP 18; O2SAT 98
[2022-07-26 19:28] LABS: Bilirubin Urine Neg (Negative); Blood Urine Neg (Negative); Glucose Urine UA Norm (Normal); Ketones Urine Negative (Negative); Leukocyte Esterase Urine Negative (Negative); Nitrate Urine Negative (Negative); Protein Urine Neg (Negative); Urine Appearance Clear (CLEAR); Urine Color Yellow (Yellow); Urobilinogen Urine 1 mg/dL (Negative); pH Urine 7 (5-7)
== END 2022-07-26 20:55 | disposition home or self-care (01) ==
PROVIDERS: Family Medicine; Emergency Provider Emergency Medicine; PCP Family Medicine
DX: R53.1 Weakness (principal); Z79.01 Long term (current) use of anticoagulants; I10 Essential (primary) hypertension; E78.5 Hyperlipidemia, unspecified
CPT/HCPCS: 36415; 70450; 71045; 80053; 81003; 85025; 93005; 96360; 99285; J7030

== ENCOUNTER 2022-08-23 14:06 | Outpatient (CLI) | payer MEDICARE, SELFPAY ==
--- NOTE | 2022-08-23 14:39 | CT_ITS ---
WS: [id number] CT HEAD TECHNIQUE: Noncontrast CT of the head obtained from the skullbase to the vertex. CLINICAL INFORMATION: DEMENTIA COMPARISON: CT July 26, 2022 DLP: 1055.[address] scans at [facility] use at least one of these dose optimization techniques: automated e xposure control; mA and/or kV adjustment per patient size (includes targeted exams where dose is matc hed to clinical indication); or iterative reconstruction. FINDINGS: No evidence of intracranial hemorrhage or mass effect. Ventricular system and basal cisterns are vizcarra nt. Moderate small vessel changes with moderate parenchymal volume loss. No extra-axial fluid collect ions. No evidence of mass or mass effect. 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 Intracranial vascular calcifications. Paranasal sinuses and mastoid air cells are well aerated. .Normal visualized soft tissues. CT/CT head wo con* [id number] IMPRESSION: 1. No evidence of intracranial hemorrhage or mass effect. 2. Moderate small vessel changes. Moderate parenchymal volume loss. 3. Intracranial vascular calcification. 4. No acute intracranial findings.
== END 2022-08-23 14:07 | disposition home or self-care (01) ==
PROVIDERS: PCP Family Medicine; Visit Provider Family Medicine
DX: F03.90 Unspecified dementia, unspecified severity, without behavioral disturbance, psychotic disturbance, mood disturbance, and anxiety (principal); I67.2 Cerebral atherosclerosis
CPT/HCPCS: 70450

== ENCOUNTER 2023-02-23 12:44 | Outpatient (CLI) | payer MEDICARE, SELFPAY ==
--- NOTE | 2023-02-23 12:51 | MM_ITS ---
WS: [id number] BILATERAL 3D TOMOSYNTHESIS DIGITAL DIAGNOSTIC MAMMOGRAPHY WITH CAD CLINICAL INFORMATION: CHANDRIKA BR PAIN HISTORY: LEFT breast pain. Dimpling around LEFT breast nipple. COMPARISON: 2018 TECHNIQUE: Bilateral CC, MLO, and ML views. FINDINGS: The breasts are composed of heterogeneous fibroglandular density, which can limit the detection of sm all underlying mass lesions. Vascular calcification. Punctate and lucent centered calcifications. Dif fuse LEFT skin thickening with suggestion of trabecular thickening LEFT breast. Skin thickening about the areola. This is significantly progressed compared to 2018. Ultrasound LEFT breast is pending. RIGHT breast is unchanged in appearance. ULTRASOUND BREAST LEFT TECHNIQUE: Ultrasound left breast focused area of concern. CLINICAL INFORMATION: CHANDRIKA BR PAIN FINDINGS: Ultrasound LEFT breast about the areola. Diffuse skin thickening measuring up to 6 mm. Suggestion of diffuse trabecular thickening with subcutaneous edema. No cystic or solid focal lesions. No fluid col lections. Above findings can be seen with mastitis as well as inflammatory breast carcinoma. Recommend clinical correlation and correlation with antibiotic treatment. Recommend punch biopsy LEFT breast to exclude inflammatory breast carcinoma. IMPRESSION: MM/[place] [id number] BI-RADS: 4-Suspicious Finding-Biopsy Should Be Considered FOLLOW UP: Biopsy Recommended Diffuse skin and trabecular thickening LEFT breast can be seen with mastitis an d inflammatory breast carcinoma. Recommend skin punch biopsy LEFT breast to exc lude inflammatory breast carcinoma. (Dermatology or surgical referral for skin punch biopsy.)
== END 2023-02-23 12:45 | disposition home or self-care (01) ==
LOC: RAD 12:45
PROVIDERS: PCP Family Medicine; Visit Provider Family Medicine
DX: N64.4 Mastodynia (principal); N64.59 Other signs and symptoms in breast
CPT/HCPCS: 76642; 77062; G0279

== ENCOUNTER → 2023-03-13 10:25 | Outpatient (BNVA) | payer MEDICARE, SELFPAY | PROVIDERS: PCP Family Medicine; Referring Provider Family Medicine; Visit Provider Surgery | DX: N64.4 Mastodynia (principal) | CPT/HCPCS: 11104; 88305; 99204 ==